=== PATIENT | female | born 1950 | race Caucasian/White ===

== ENCOUNTER 2019-02-06 20:14 | Inpatient (IN) | payer MEDICARE, MEDICAID ==
--- NOTE | 2019-02-06 20:38 | ED Physician Chart ---
ED Chief Complaint/HPI - Patient Information Date Seen:: 02/06/19 Time Seen:: 20:34 Chief Complaint:: possible suicidal History of Present Illness:: 68 yr old female with dm who ststes she is upset and does not want to be here and states she does not want to be evaluated and does not feel she is trying to hurt herself or others Allergies:: Allergies Allergy/AdvReac Type Severity Reaction Status Date / Time No Known Allergies Allergy Verified 11/19/18 04:15 ED Review of Systems - Review of Systems General/Constitutional: No fever, No chills, No weight loss, No weakness, No diaphoresis, No edema, No loss of appetite Skin: No skin lesions, No rash, No bruising Head: No headache, No light-headedness Eyes: No loss of vision, No pain, No diplopia ENT: No earache, No nasal drainage, No sore throat, No tinnitus Neck: No neck pain, No swelling, No thyromegaly, No stiffness, No mass noted Cardio Vascular: No chest pain, No palpitations, No PND, No orthopnea, No edema Pulmonary: No SOB, No cough, No sputum, No wheezing GI: No nausea, No vomiting, No diarrhea, No pain, No melena, No hematochezia, No constipation, No hematemesis G/U: No dysuria, No frequency, No hematuria Musculoskeletal: No bone or joint pain, No back pain, No muscle pain Endocrine: No polyuria, No polydipsia Psychiatric: No prior psych history, No depression, No anxiety, No suicidal ideation Hematopoietic: No bruising, No lymphadenopathy Allergic/Immuno: No urticaria, No angioedema Neurological: No syncope, No focal symptoms, No weakness, No paresthesia, No headache, No seizure, No dizziness, No confusion, No vertigo ED Past Medical History - Past Medical History Past Medical History: DM ED Physical Exam - Physical Examination General/Constitutional: Awake, Well-developed, well-nourished, Alert, No distress, GCS 15, Non-toxic appearing, Ambulatory Head: Atraumatic Eyes: Lids, conjuctiva normal, PERRL, EOMI Skin: Nl inspection, No rash, No skin lesions, No ecchymosis, Well hydrated, No lymphadenopathy ENMT: External ears, nose nl, Nasal exam nl, Lips, teeth, gums nl Neck: Nontender, Full ROM w/o pain, No JVD, No nuchal rigidity, No bruit, No mass, No stridor Respiratory: Nl effort/Exclusion, Clear to Auscultation, No Wheeze/Rhonchi/Rales Cardio Vascular: RRR, No murmur, gallop, rubs, NL S1 S2 GI: No tenderness/rebounding/guarding, No organomegaly, No hernia, Normal BS's, Nondistended, No mass/bruits, No McBurney tenderness : No CVA tenderness Extremities: No tenderness or effusion, Full ROM, normal strength in all extremities, No edema, Normal digits & nails Neuro/Psych: Alert/oriented, DTR's symmetric, Normal sensory exam, Normal motor strength, Judgement/insight normal, Mood normal, Normal gait, No focal deficits Misc: Normal back, No paraspinal tenderness ED Assessment - Assessment General Assessment: possible suicidal ED Septic Shock - . Is Septic Shock (SBP<90, OR Lactate>4 mmol\L) present?: No ED Reassessment (Disposition) - Reassessment Reassessment:: depression anger possible suicidal - Diagnosis Diagnosis:: as above - Patient Disposition Condition at Disposition:: Stable
[2019-02-06 22:53] LABS: URINE SOURCE CLEAN C
[2019-02-06 22:55] LABS: URINE BILIRUBIN NEGATIVE (NEGATIVE); URINE BLOOD TRACE (NEGATIVE); URINE GLUCOSE (UA) >=1000 mg/dL (NEGATIVE); URINE KETONE NEGATIVE (NEGATIVE); URINE LEUKOCYTE ESTERASE NEGATIVE (NEGATIVE); URINE MICROSCOPIC INDICATED? YES; URINE NITRATE NEGATIVE (NEGATIVE); URINE PROTEIN 100 mg/dL (NEGATIVE); URINE UROBILINOGEN 0.2 E.U./dL (0.2 - 1.0)
[2019-02-06 23:07] LABS: % BASOPHILS 0.4 % (0.0-2.0); % EOSINOPHILS 1.4 % (0.0-5.0); % LYMPHOCYTES 31.7 % (20.0-50.0); % MONOCYTES 9.6 % (2.0-10.0); % NEUTROPHILS 56.9 % (40.0-80.0); EOSINOPHILE ABSOLUTE 0.1 Th/cmm (0.1-0.4); HEMATOCRIT 40.1 % (41.0-60); HEMOGLOBIN 13.5 gm/dL (12-16); LYMPHOCYTE ABSOLUTE 2.1 Th/cmm (1.5-3.0); MEAN CELL VOLUME 93.6 fl (81-100); MEAN CORPUSCULAR HEMOGLOBIN 31.6 pg (27.0-31.0); MEAN CORPUSCULAR HGB CONC 33.8 pg (28.0-36.0); MEAN PLATELET VOLUME 7.7 fl; MONOCYTE ABSOLUTE 0.6 Th/cmm (0.3-1.0); NEUTROPHILE ABSOLUTE 3.7 Th/cmm (1.8-8.0); PLATELET COUNT 136 Th/cmm (150-400); RED BLOOD COUNT 4.28 Mil/cmm (3.80-5.20); WHITE BLOOD COUNT 6.5 Th/cmm (4.8-10.8)
[2019-02-06 23:11] LABS: URINE COLOR YELLOW
[2019-02-06 23:19] LABS: URINE CLARITY CLEAR (CLEAR)
[2019-02-06 23:19] LABS: ALB/GLOB RATIO 1.2 (1.0-1.8); ALBUMIN 3.8 gm/dL (3.7-5.3); ALKALINE PHOSPHATASE 74 U/L (34-104); ANION GAP 13.4 (7.0-16.0); BILIRUBIN,TOTAL 0.6 mg/dL (0.3-1.0); BUN - UREA NITROGEN 16 mg/dL (7-25); CALCIUM SERUM 9.5 mg/dL (8.6-10.3); CARBON DIOXIDE 23.5 mEq/L (21.0-31.0); CHLORIDE 96 mEq/L (98-107); CREATININE - SERUM 0.8 mg/dL (0.6-1.2); GFR AFRICAN-AMERICAN > 60.0 ml/min (>90); GFR NON AFRICAN-AMERICAN > 60.0 ml/min; GLUCOSE 256 mg/dL (70-105); POTASSIUM SERUM 3.9 mEq/L (3.5-5.1); SGOT 39 U/L (13-39); SGPT/ALT 43 U/L (7-52); SODIUM SERUM 129 mEq/L (136-145); TOTAL PROTEIN,SERUM 6.9 gm/dL (6.0-8.3)
[2019-02-06 23:31] LABS: URINE BACTERIA NONE SEEN /hpf (NONE SEEN); URINE EPITHELIAL CELLS NONE SEEN /lpf (FEW); URINE RBC NONE SEEN /hpf (0-5); URINE WBC 0-2 /hpf (0-5)
[2019-02-07] MEDS ORDERED: Magnesium Hydroxide (MOM) 30 mL UDC PO PRN (00:22)
[2019-02-07] MEDS ORDERED: GLUCAGON HCl 1 MG KIT IM PRN (00:22)
[2019-02-07] MEDS ORDERED: Maalox 30 mL Cup PO PRN (00:22)
[2019-02-07 00:34] VITALS: BP 176/81
[2019-02-07 00:52] LABS: CHOLESTEROL 169 mg/dL (<200); HDL -HIGH DENSITY LIPOPROTEIN 52 mg/dL (23-92); TRIGLYCERIDES 149 mg/dL (<150)
[2019-02-07] MEDS: INSULIN LISPRO SLIDING SCALE 100 UNITS/ML UNIT SUBQ SCH ×5 (07:01→22:00)
[2019-02-07] MEDS: Multivitamin Tab PO SCH (08:40)
[2019-02-07] MEDS: Aspirin 81mg Chewable Tab PO SCH (08:43)
[2019-02-07] MEDS: Insulin Glargine 100 units/ml 10ml Vial SUBQ SCH (08:59)
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
[2019-02-08] MEDS: INSULIN LISPRO SLIDING SCALE 100 UNITS/ML UNIT SUBQ SCH ×4 (06:47→21:22)
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
[2019-02-08] MEDS: Aspirin 81mg Chewable Tab PO SCH (09:46)
[2019-02-08] MEDS: Multivitamin Tab PO SCH (09:46)
[2019-02-08] MEDS: Insulin Glargine 100 units/ml 10ml Vial SUBQ SCH (09:51)
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
[2019-02-09] MEDS: INSULIN LISPRO SLIDING SCALE 100 UNITS/ML UNIT SUBQ SCH ×4 (06:35→21:10)
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
--- NOTE | 2019-02-09 08:50 | General Progress Note ---
Subjective - Review of Systems Service Date: 02/09/19 Subjective: I don know why I Am here. Objective - Results Result Diagrams: 02/06/19 23:00 02/06/19 23:00 Recent Labs: Laboratory Last Values WBC 6.5 Th/cmm (4.8-10.8) 02/06/19 23:00 RBC 4.28 Mil/cmm (3.80-5.20) 02/06/19 23:00 Hgb 13.5 gm/dL (12-16) 02/06/19 23:00 Hct 40.1 % (41.0-60) L 02/06/19 23:00 MCV 93.6 fl (81-100) 02/06/19 23:00 MCH 31.6 pg (27.0-31.0) H 02/06/19 23:00 MCHC Differential 33.8 pg (28.0-36.0) 02/06/19 23:00 RDW 13.0 % (11.5-20.0) 02/06/19 23:00 Plt Count 136 Th/cmm (150-400) L 02/06/19 23:00 MPV 7.7 fl 02/06/19 23:00 Neutrophils % 56.9 % (40.0-80.0) 02/06/19 23:00 Lymphocytes % 31.7 % (20.0-50.0) 02/06/19 23:00 Monocytes % 9.6 % (2.0-10.0) 02/06/19 23:00 Eosinophils % 1.4 % (0.0-5.0) 02/06/19 23:00 Basophils % 0.4 % (0.0-2.0) 02/06/19 23:00 Sodium 129 mEq/L (136-145) L 02/06/19 23:00 Potassium 3.9 mEq/L (3.5-5.1) 02/06/19 23:00 Chloride 96 mEq/L (98-107) L 02/06/19 23:00 Carbon Dioxide 23.5 mEq/L (21.0-31.0) 02/06/19 23:00 Anion Gap 13.4 (7.0-16.0) 02/06/19 23:00 BUN 16 mg/dL (7-25) 02/06/19 23:00 Creatinine 0.8 mg/dL (0.6-1.2) 02/06/19 23:00 Est GFR ( Amer) > 60.0 ml/min (>90) 02/06/19 23:00 Est GFR (Non-Af Amer) > 60.0 ml/min 02/06/19 23:00 BUN/Creatinine Ratio 20.0 02/06/19 23:00 Glucose 256 mg/dL (70-105) H 02/06/19 23:00 POC Glucose 178 MG/DL (70 - 105) H 02/07/19 06:50 Calcium 9.5 mg/dL (8.6-10.3) 02/06/19 23:00 Total Bilirubin 0.6 mg/dL (0.3-1.0) 02/06/19 23:00 AST 39 U/L (13-39) 02/06/19 23:00 ALT 43 U/L (7-52) 02/06/19 23:00 Alkaline Phosphatase 74 U/L (34-104) 02/06/19 23:00 Total Protein 6.9 gm/dL (6.0-8.3) 02/06/19 23:00 Albumin 3.8 gm/dL (3.7-5.3) 02/06/19 23:00 Globulin 3.1 gm/dL 02/06/19 23:00 Albumin/Globulin Ratio 1.2 (1.0-1.8) 02/06/19 23:00 Triglycerides 149 mg/dL (<150) 02/07/19 00:00 Cholesterol 169 mg/dL (<200) 02/07/19 00:00 LDL Cholesterol Direct 95 mg/dL (75-193) 02/07/19 00:00 HDL Cholesterol 52 mg/dL (23-92) 02/07/19 00:00 Urine Source CLEAN C 02/06/19 20:30 Urine Color YELLOW 02/06/19 20:30 Urine Clarity CLEAR (CLEAR) 02/06/19 20:30 Urine pH 6.0 (4.6 - 8.0) 02/06/19 20:30 Ur Specific [place] 1.015 (1.005-1.030) 02/06/19 20:30 Urine Protein 100 mg/dL (NEGATIVE) H 02/06/19 20:30 Urine Glucose (UA) >=1000 mg/dL (NEGATIVE) H 02/06/19 20:30 Urine Ketones NEGATIVE mg/dL (NEGATIVE) 02/06/19 20:30 Urine Blood TRACE (NEGATIVE) 02/06/19 20:30 Urine Nitrate NEGATIVE (NEGATIVE) 02/06/19 20:30 Urine Bilirubin NEGATIVE (NEGATIVE) 02/06/19 20:30 Urine Urobilinogen 0.2 E.U./dL (0.2 - 1.0) 02/06/19 20:30 Ur Leukocyte Esterase NEGATIVE (NEGATIVE) 02/06/19 20:30 Urine RBC NONE SEEN /hpf (0-5) 02/06/19 20:30 Urine WBC 0-2 /hpf (0-5) 02/06/19 20:30 Ur Epithelial Cells NONE SEEN /lpf (FEW) 02/06/19 20:30 Urine Bacteria NONE SEEN /hpf (NONE SEEN) 02/06/19 20:30 Valproic Acid 30.6 ug/mL (50.0-100.0) L 02/07/19 05:30 - Physical Exam Vitals and I&O: Vital Signs Temp 97.2 F 02/09/19 06:17 Pulse 70 02/09/19 06:17 Resp 18 02/09/19 06:17 BP 106/75 02/09/19 06:17 Pulse Ox 96 02/09/19 06:17 Intake & Output 02/08/19 02/09/19 02/09/19 18:59 06:59 18:59 Intake Total 120 Balance 120 Intake: Oral 120 Other: # Voids 2 3 # Bowel Movements 0 Active Medications: Current Medications Acetaminophen (Tylenol) 650 mg PO Q4HR PRN PRN Reason: Mild Pain / Temp above 100 Stop: 04/08/19 00:18 Last Admin: 02/09/19 04:04 Dose: 650 mg Al Hydrox/Mg Hydrox/Simethicone (Maalox) 30 ml PO Q4HR PRN PRN Reason: GI DISTRESS Stop: 04/08/19 00:21 Aspirin (Aspirin Chewable) 81 mg PO DAILY YVON Stop: 04/08/19 08:59 Last Admin: 02/08/19 09:46 Dose: 81 mg Dextrose (Glutose 40%) 18.75 gm PO PRN PRN PRN Reason: BS below 70 & tolerate po Stop: 04/08/19 00:21 Divalproex Sodium (Depakote Dr) 250 mg PO BID [facility]; Protocol Stop: 04/08/19 08:59 Last Admin: 02/08/19 16:34 Dose: 250 mg Donepezil HCl (Aricept) 10 mg PO DAILY [facility] Stop: 04/08/19 08:59 Last Admin: 02/08/19 09:46 Dose: 10 mg Ergocalciferol (Vitamin D2) 50,000 iu PO QFRI [facility] Stop: 04/14/19 08:59 Glucagon (Glucagen) 1 mg IM PRN PRN PRN Reason: BS below 70 & Dextrose ineffec Stop: 04/08/19 00:21 Insulin Glargine (Lantus Insulin) 25 units SUBQ DAILY [facility] Stop: 04/08/19 08:59 Last Admin: 02/08/19 09:51 Dose: 25 units Insulin Human Lispro (Humalog Insulin Sliding Scale) 0 units SUBQ ACHS [facility]; Protocol Stop: 04/08/19 07:29 Last Admin: 02/09/19 06:35 Dose: Not Given Magnesium Hydroxide (Milk Of Magnesia) 30 ml PO HS PRN PRN Reason: Constipation Stop: 04/08/19 00:21 Memantine (Namenda) 10 mg PO BID [facility] Stop: 04/08/19 08:59 Last Admin: 02/08/19 16:35 Dose: 10 mg Multivitamins/Vitamin C (Theragran) 1 tab PO DAILY [facility] Stop: 04/08/19 08:59 Last Admin: 02/08/19 09:46 Dose: 1 tab Oxcarbazepine (Trileptal) 150 mg PO BID [facility]; Protocol Stop: 04/08/19 08:59 Last Admin: 02/08/19 16:35 Dose: 150 mg Quetiapine Fumarate (Seroquel) 37.5 mg PO BID [facility]; Protocol Stop: 04/10/19 08:59 Tramadol HCl (Ultram) 50 mg PO TID PRN PRN Reason: Pain (Severe) LEVEL 7-10 Stop: 04/08/19 00:21 Last Admin: 02/08/19 18:41 Dose: 50 mg Zolpidem Tartrate (Ambien) 5 mg PO HS PRN PRN Reason: Insomnia Stop: 04/08/19 00:18 Last Admin: 02/07/19 21:03 Dose: 5 mg General: Alert, No acute distress HEENT: Atraumatic Neck: Supple Cardiovascular: Regular rate Lungs: Clear to auscultation Abdomen: Bowel sounds Extremities: Other (No edema) Neurological: Normal gait Skin: Other (Warm and dry) Psych/Mental Status: Other (confused) Assessment/Plan - Assessment Assessment: Patient is awake, alert, calm not oriented. Dx: Increased in agitation, DM - Plan Plan: Patient is follow by [facility], she is continue with home meds. Will continue to monitor. Nutritional Asmnt/Malnutr-PDOC - Dietary Evaluation Malnutrition Findings (Please click <Entered> for more info): Nutritional Asmnt/Malnutrition Start: 02/07/19 09: 10 Text: Status: Complete Freq: Protocol: Document 02/07/19 09:10 JOSE (Rec: 02/07/19 09:58 [email or web address] RUBY- [id number]) Nutritional Asmnt/Malnutrition Patient General Information Nutritional Screening High Risk Diagnosis Psychosis Pertinent Medical Hx/Surgical Hx Psychosis, DM, HTN, Dementia Subjective Information Consult received for DM. Per nursing notes, patient is confused and forgetful. In bed at time of visit. Not able to answer questions regarding diet history. Current Diet Order/ Nutrition Support 60 gm CCHO, 2gm Sodium Patient / S.O Not Indicated Pertinent Medications maalox, Vitamin D2, Glucagon, lantus, humalog, MOM, Theragran Pertinent Labs (02/06) Na 129, glucose 256 Nutritional Hx/Data Height 1.55 m Height (Calculated Centimeters) 154.9 Current Weight (lbs) 69.4 kg Weight (Calculated Kilograms) 69.4 Weight (Calculated Grams) 93653.6 [place] Body Weight 105 % [place] Body Weight 145 Body Mass Index (BMI) 28.9 Recent Weight Change No Weight Status Overweight GI Symptoms GI Symptoms None Last BM none noted since admission Difficult in: None Food Allergies No Cultural/Ethnic/Scientology Belief none indicated Usual diet at home unknown Skin Integrity/Comment: Robe 21, intact Current %PO Good (75-100%) Estimated Nutritional Goals BEE in Kcals: Using Current wt Calories/Kcals/Kg 69.5kg CBW 22-27 Kcals Calculated ~9830-8206 kcal/day Protein: Using Current wt Protein g/k.8-1 gm/kg Protein Calculated ~55-70 gm/day Fluid: ml ~4717-2231 ml/day (1 ml/kcal) Nutritional Problem 1. Problem Problem Altered nutrition related lab values related to Etiology electrolyte imbalance, hyperglycemia aeb Signs/Symptoms: Na 129, glucose 256 Intervention/Recommendation Comments 1. Continue with 60 gm CCHO, 2gm Sodium diet as tolerated. 2. MD to adjust insulin regimen as needed for optimal glycemic control. 3. Consider fluid restiction if patient remains hyponatremic. Expected Outcomes/Goals Expected Outcomes/Goals PO intake to meet >75% of nutritional needs, weight stability or trend toward ideal body weight, skin intact , nutrition related labs to approach WNL F/U MR 02/10-
[2019-02-09] MEDS: Insulin Glargine 100 units/ml 10ml Vial SUBQ SCH (09:00)
[2019-02-09] MEDS: Multivitamin Tab PO SCH (09:19)
[2019-02-09] MEDS: Aspirin 81mg Chewable Tab PO SCH (09:19)
[2019-02-10] MEDS: INSULIN LISPRO SLIDING SCALE 100 UNITS/ML UNIT SUBQ SCH ×4 (06:31→20:33)
[2019-02-10] MEDS: Aspirin 81mg Chewable Tab PO SCH (08:50)
[2019-02-10] MEDS: Multivitamin Tab PO SCH (08:51)
[2019-02-10] MEDS: Insulin Glargine 100 units/ml 10ml Vial SUBQ SCH (09:00)
--- NOTE | 2019-02-10 09:01 | General Progress Note ---
Subjective - Review of Systems Service Date: 02/10/19 Subjective: I am fine Objective - Results Result Diagrams: 02/06/19 23:00 02/06/19 23:00 Recent Labs: Laboratory Last Values WBC 6.5 Th/cmm (4.8-10.8) 02/06/19 23:00 RBC 4.28 Mil/cmm (3.80-5.20) 02/06/19 23:00 Hgb 13.5 gm/dL (12-16) 02/06/19 23:00 Hct 40.1 % (41.0-60) L 02/06/19 23:00 MCV 93.6 fl (81-100) 02/06/19 23:00 MCH 31.6 pg (27.0-31.0) H 02/06/19 23:00 MCHC Differential 33.8 pg (28.0-36.0) 02/06/19 23:00 RDW 13.0 % (11.5-20.0) 02/06/19 23:00 Plt Count 136 Th/cmm (150-400) L 02/06/19 23:00 MPV 7.7 fl 02/06/19 23:00 Neutrophils % 56.9 % (40.0-80.0) 02/06/19 23:00 Lymphocytes % 31.7 % (20.0-50.0) 02/06/19 23:00 Monocytes % 9.6 % (2.0-10.0) 02/06/19 23:00 Eosinophils % 1.4 % (0.0-5.0) 02/06/19 23:00 Basophils % 0.4 % (0.0-2.0) 02/06/19 23:00 Sodium 129 mEq/L (136-145) L 02/06/19 23:00 Potassium 3.9 mEq/L (3.5-5.1) 02/06/19 23:00 Chloride 96 mEq/L (98-107) L 02/06/19 23:00 Carbon Dioxide 23.5 mEq/L (21.0-31.0) 02/06/19 23:00 Anion Gap 13.4 (7.0-16.0) 02/06/19 23:00 BUN 16 mg/dL (7-25) 02/06/19 23:00 Creatinine 0.8 mg/dL (0.6-1.2) 02/06/19 23:00 Est GFR ( Amer) > 60.0 ml/min (>90) 02/06/19 23:00 Est GFR (Non-Af Amer) > 60.0 ml/min 02/06/19 23:00 BUN/Creatinine Ratio 20.0 02/06/19 23:00 Glucose 256 mg/dL (70-105) H 02/06/19 23:00 POC Glucose 178 MG/DL (70 - 105) H 02/07/19 06:50 Calcium 9.5 mg/dL (8.6-10.3) 02/06/19 23:00 Total Bilirubin 0.6 mg/dL (0.3-1.0) 02/06/19 23:00 AST 39 U/L (13-39) 02/06/19 23:00 ALT 43 U/L (7-52) 02/06/19 23:00 Alkaline Phosphatase 74 U/L (34-104) 02/06/19 23:00 Total Protein 6.9 gm/dL (6.0-8.3) 02/06/19 23:00 Albumin 3.8 gm/dL (3.7-5.3) 02/06/19 23:00 Globulin 3.1 gm/dL 02/06/19 23:00 Albumin/Globulin Ratio 1.2 (1.0-1.8) 02/06/19 23:00 Triglycerides 149 mg/dL (<150) 02/07/19 00:00 Cholesterol 169 mg/dL (<200) 02/07/19 00:00 LDL Cholesterol Direct 95 mg/dL (75-193) 02/07/19 00:00 HDL Cholesterol 52 mg/dL (23-92) 02/07/19 00:00 Urine Source CLEAN C 02/06/19 20:30 Urine Color YELLOW 02/06/19 20:30 Urine Clarity CLEAR (CLEAR) 02/06/19 20:30 Urine pH 6.0 (4.6 - 8.0) 02/06/19 20:30 Ur Specific [place] 1.015 (1.005-1.030) 02/06/19 20:30 Urine Protein 100 mg/dL (NEGATIVE) H 02/06/19 20:30 Urine Glucose (UA) >=1000 mg/dL (NEGATIVE) H 02/06/19 20:30 Urine Ketones NEGATIVE mg/dL (NEGATIVE) 02/06/19 20:30 Urine Blood TRACE (NEGATIVE) 02/06/19 20:30 Urine Nitrate NEGATIVE (NEGATIVE) 02/06/19 20:30 Urine Bilirubin NEGATIVE (NEGATIVE) 02/06/19 20:30 Urine Urobilinogen 0.2 E.U./dL (0.2 - 1.0) 02/06/19 20:30 Ur Leukocyte Esterase NEGATIVE (NEGATIVE) 02/06/19 20:30 Urine RBC NONE SEEN /hpf (0-5) 02/06/19 20:30 Urine WBC 0-2 /hpf (0-5) 02/06/19 20:30 Ur Epithelial Cells NONE SEEN /lpf (FEW) 02/06/19 20:30 Urine Bacteria NONE SEEN /hpf (NONE SEEN) 02/06/19 20:30 Valproic Acid 30.6 ug/mL (50.0-100.0) L 02/07/19 05:30 - Physical Exam Vitals and I&O: Vital Signs Temp 97.2 F 02/10/19 06:36 Pulse 64 02/10/19 06:36 Resp 18 02/10/19 06:36 BP 111/66 02/10/19 06:36 Pulse Ox 98 02/10/19 06:36 Intake & Output 02/09/19 02/10/19 02/10/19 18:59 06:59 18:59 Intake Total 900 240 Balance 900 240 Intake: Oral 900 240 Other: # Voids 3 2 # Bowel Movements 1 0 Active Medications: Current Medications Acetaminophen (Tylenol) 650 mg PO Q4HR PRN PRN Reason: Mild Pain / Temp above 100 Stop: 04/08/19 00:18 Last Admin: 02/09/19 23:54 Dose: 650 mg Al Hydrox/Mg Hydrox/Simethicone (Maalox) 30 ml PO Q4HR PRN PRN Reason: GI DISTRESS Stop: 04/08/19 00:21 Aspirin (Aspirin Chewable) 81 mg PO DAILY YVON Stop: 04/08/19 08:59 Last Admin: 02/10/19 08:50 Dose: 81 mg Dextrose (Glutose 40%) 18.75 gm PO PRN PRN PRN Reason: BS below 70 & tolerate po Stop: 04/08/19 00:21 Divalproex Sodium (Depakote Dr) 250 mg PO BID [facility]; Protocol Stop: 04/08/19 08:59 Last Admin: 02/10/19 08:50 Dose: 250 mg Donepezil HCl (Aricept) 10 mg PO DAILY [facility] Stop: 04/08/19 08:59 Last Admin: 02/10/19 08:50 Dose: 10 mg Ergocalciferol (Vitamin D2) 50,000 iu PO QFRI [facility] Stop: 04/14/19 08:59 Glucagon (Glucagen) 1 mg IM PRN PRN PRN Reason: BS below 70 & Dextrose ineffec Stop: 04/08/19 00:21 Insulin Glargine (Lantus Insulin) 25 units SUBQ DAILY [facility] Stop: 04/08/19 08:59 Last Admin: 02/09/19 09:00 Dose: 25 units Insulin Human Lispro (Humalog Insulin Sliding Scale) 0 units SUBQ ACHS [facility]; Protocol Stop: 04/08/19 07:29 Last Admin: 02/10/19 06:31 Dose: Not Given Magnesium Hydroxide (Milk Of Magnesia) 30 ml PO HS PRN PRN Reason: Constipation Stop: 04/08/19 00:21 Memantine (Namenda) 10 mg PO BID [facility] Stop: 04/08/19 08:59 Last Admin: 02/10/19 08:51 Dose: 10 mg Multivitamins/Vitamin C (Theragran) 1 tab PO DAILY [facility] Stop: 04/08/19 08:59 Last Admin: 02/10/19 08:51 Dose: 1 tab Oxcarbazepine (Trileptal) 150 mg PO BID [facility]; Protocol Stop: 04/08/19 08:59 Last Admin: 02/10/19 08:51 Dose: 150 mg Quetiapine Fumarate (Seroquel) 37.5 mg PO BID [facility]; Protocol Stop: 04/10/19 08:59 Last Admin: 02/10/19 08:52 Dose: 37.5 mg Tramadol HCl (Ultram) 50 mg PO TID PRN PRN Reason: Pain (Severe) LEVEL 7-10 Stop: 04/08/19 00:21 Last Admin: 02/08/19 18:41 Dose: 50 mg Zolpidem Tartrate (Ambien) 5 mg PO HS PRN PRN Reason: Insomnia Stop: 04/08/19 00:18 Last Admin: 02/07/19 21:03 Dose: 5 mg General: Alert, No acute distress HEENT: Atraumatic Neck: Supple Cardiovascular: Regular rate Lungs: Clear to auscultation Abdomen: Bowel sounds Extremities: Other (No edema) Neurological: Normal gait Skin: Other (Warm and dry) Psych/Mental Status: Other (confused) Assessment/Plan - Assessment Assessment: Patient is awake, alert, calm not oriented. Dx: Increased in agitation, DM. - Plan Plan: Patient is follow by [facility], she is continue with home meds. Will continue to monitor. Nutritional Asmnt/Malnutr-PDOC - Dietary Evaluation Malnutrition Findings (Please click <Entered> for more info): Nutritional Asmnt/Malnutrition Start: 02/07/19 09: 10 Text: Status: Complete Freq: Protocol: Document 02/07/19 09:10 MMJESSICA (Rec: 02/07/19 09:58 MMULTERENCE BELTRAN- [email or web address]) Nutritional Asmnt/Malnutrition Patient General Information Nutritional Screening High Risk Diagnosis Psychosis Pertinent Medical Hx/Surgical Hx Psychosis, DM, HTN, Dementia Subjective Information Consult received for DM. Per nursing notes, patient is confused and forgetful. In bed at time of visit. Not able to answer questions regarding diet history. Current Diet Order/ Nutrition Support 60 gm CCHO, 2gm Sodium Patient / S.O Not Indicated Pertinent Medications maalox, Vitamin D2, Glucagon, lantus, humalog, MOM, Theragran Pertinent Labs (02/06) Na 129, glucose 256 Nutritional Hx/Data Height 1.55 m Height (Calculated Centimeters) 154.9 Current Weight (lbs) 69.4 kg Weight (Calculated Kilograms) 69.4 Weight (Calculated Grams) 70719.6 [place] Body Weight 105 % [place] Body Weight 145 Body Mass Index (BMI) 28.9 Recent Weight Change No Weight Status Overweight GI Symptoms GI Symptoms None Last BM none noted since admission Difficult in: None Food Allergies No Cultural/Ethnic/Tenriism Belief none indicated Usual diet at home unknown Skin Integrity/Comment: Robe 21, intact Current %PO Good (75-100%) Estimated Nutritional Goals BEE in Kcals: Using Current wt Calories/Kcals/Kg 69.5kg CBW 22-27 Kcals Calculated ~6644-0255 kcal/day Protein: Using Current wt Protein g/k.8-1 gm/kg Protein Calculated ~55-70 gm/day Fluid: ml ~8785-0451 ml/day (1 ml/kcal) Nutritional Problem 1. Problem Problem Altered nutrition related lab values related to Etiology electrolyte imbalance, hyperglycemia aeb Signs/Symptoms: Na 129, glucose 256 Intervention/Recommendation Comments 1. Continue with 60 gm CCHO, 2gm Sodium diet as tolerated. 2. MD to adjust insulin regimen as needed for optimal glycemic control. 3. Consider fluid restiction if patient remains hyponatremic. Expected Outcomes/Goals Expected Outcomes/Goals PO intake to meet >75% of nutritional needs, weight stability or trend toward ideal body weight, skin intact , nutrition related labs to approach WNL F/U MR
--- NOTE | 2019-02-10 23:53 | Progress Notes ---
DATE: 02/10/2019 SUBJECTIVE: The patient remains impulsive, unpredictable, violent at home, very confused on exam. Continues to state that she has no idea why she is in the hospital. I told her that she was aggressive at home and violent. She states "while people flight with me, I fight them back." The patient minimizing her symptoms, evasive with questioning and disengaged. Poor orientation. Medications were noted. Recent dose increases of Seroquel. PLAN: We will continue to monitor. Monitor for any signs and symptoms of agitation and aggression. We are also trying to confirm a safe disposition. [facility]# [id number]
[2019-02-11] MEDS: INSULIN LISPRO SLIDING SCALE 100 UNITS/ML UNIT SUBQ SCH ×4 (06:47→20:38)
[2019-02-11] MEDS: Multivitamin Tab PO SCH (08:44)
[2019-02-11] MEDS: Insulin Glargine 100 units/ml 10ml Vial SUBQ SCH (08:44)
[2019-02-11] MEDS: Aspirin 81mg Chewable Tab PO SCH (08:44)
--- NOTE | 2019-02-11 08:55 | General Progress Note ---
Subjective - Review of Systems Service Date: 02/11/19 Subjective: I am fine Objective - Results Result Diagrams: 02/06/19 23:00 02/06/19 23:00 Recent Labs: Laboratory Last Values WBC 6.5 Th/cmm (4.8-10.8) 02/06/19 23:00 RBC 4.28 Mil/cmm (3.80-5.20) 02/06/19 23:00 Hgb 13.5 gm/dL (12-16) 02/06/19 23:00 Hct 40.1 % (41.0-60) L 02/06/19 23:00 MCV 93.6 fl (81-100) 02/06/19 23:00 MCH 31.6 pg (27.0-31.0) H 02/06/19 23:00 MCHC Differential 33.8 pg (28.0-36.0) 02/06/19 23:00 RDW 13.0 % (11.5-20.0) 02/06/19 23:00 Plt Count 136 Th/cmm (150-400) L 02/06/19 23:00 MPV 7.7 fl 02/06/19 23:00 Neutrophils % 56.9 % (40.0-80.0) 02/06/19 23:00 Lymphocytes % 31.7 % (20.0-50.0) 02/06/19 23:00 Monocytes % 9.6 % (2.0-10.0) 02/06/19 23:00 Eosinophils % 1.4 % (0.0-5.0) 02/06/19 23:00 Basophils % 0.4 % (0.0-2.0) 02/06/19 23:00 Sodium 129 mEq/L (136-145) L 02/06/19 23:00 Potassium 3.9 mEq/L (3.5-5.1) 02/06/19 23:00 Chloride 96 mEq/L (98-107) L 02/06/19 23:00 Carbon Dioxide 23.5 mEq/L (21.0-31.0) 02/06/19 23:00 Anion Gap 13.4 (7.0-16.0) 02/06/19 23:00 BUN 16 mg/dL (7-25) 02/06/19 23:00 Creatinine 0.8 mg/dL (0.6-1.2) 02/06/19 23:00 Est GFR ( Amer) > 60.0 ml/min (>90) 02/06/19 23:00 Est GFR (Non-Af Amer) > 60.0 ml/min 02/06/19 23:00 BUN/Creatinine Ratio 20.0 02/06/19 23:00 Glucose 256 mg/dL (70-105) H 02/06/19 23:00 POC Glucose 178 MG/DL (70 - 105) H 02/07/19 06:50 Calcium 9.5 mg/dL (8.6-10.3) 02/06/19 23:00 Total Bilirubin 0.6 mg/dL (0.3-1.0) 02/06/19 23:00 AST 39 U/L (13-39) 02/06/19 23:00 ALT 43 U/L (7-52) 02/06/19 23:00 Alkaline Phosphatase 74 U/L (34-104) 02/06/19 23:00 Total Protein 6.9 gm/dL (6.0-8.3) 02/06/19 23:00 Albumin 3.8 gm/dL (3.7-5.3) 02/06/19 23:00 Globulin 3.1 gm/dL 02/06/19 23:00 Albumin/Globulin Ratio 1.2 (1.0-1.8) 02/06/19 23:00 Triglycerides 149 mg/dL (<150) 02/07/19 00:00 Cholesterol 169 mg/dL (<200) 02/07/19 00:00 LDL Cholesterol Direct 95 mg/dL (75-193) 02/07/19 00:00 HDL Cholesterol 52 mg/dL (23-92) 02/07/19 00:00 Urine Source CLEAN C 02/06/19 20:30 Urine Color YELLOW 02/06/19 20:30 Urine Clarity CLEAR (CLEAR) 02/06/19 20:30 Urine pH 6.0 (4.6 - 8.0) 02/06/19 20:30 Ur Specific [place] 1.015 (1.005-1.030) 02/06/19 20:30 Urine Protein 100 mg/dL (NEGATIVE) H 02/06/19 20:30 Urine Glucose (UA) >=1000 mg/dL (NEGATIVE) H 02/06/19 20:30 Urine Ketones NEGATIVE mg/dL (NEGATIVE) 02/06/19 20:30 Urine Blood TRACE (NEGATIVE) 02/06/19 20:30 Urine Nitrate NEGATIVE (NEGATIVE) 02/06/19 20:30 Urine Bilirubin NEGATIVE (NEGATIVE) 02/06/19 20:30 Urine Urobilinogen 0.2 E.U./dL (0.2 - 1.0) 02/06/19 20:30 Ur Leukocyte Esterase NEGATIVE (NEGATIVE) 02/06/19 20:30 Urine RBC NONE SEEN /hpf (0-5) 02/06/19 20:30 Urine WBC 0-2 /hpf (0-5) 02/06/19 20:30 Ur Epithelial Cells NONE SEEN /lpf (FEW) 02/06/19 20:30 Urine Bacteria NONE SEEN /hpf (NONE SEEN) 02/06/19 20:30 Valproic Acid 30.6 ug/mL (50.0-100.0) L 02/07/19 05:30 - Physical Exam Vitals and I&O: Vital Signs Temp 98.6 F 02/11/19 06:44 Pulse 75 02/11/19 06:44 Resp 18 02/11/19 06:44 BP 140/61 02/11/19 06:44 Pulse Ox 97 02/11/19 06:44 Intake & Output 02/10/19 02/11/19 02/11/19 18:59 06:59 18:59 Intake Total 1000 360 Balance 1000 360 Intake: Oral 1000 360 Other: # Voids 4 2 # Bowel Movements 1 1 Active Medications: Current Medications Acetaminophen (Tylenol) 650 mg PO Q4HR PRN PRN Reason: Mild Pain / Temp above 100 Stop: 04/08/19 00:18 Last Admin: 02/10/19 18:53 Dose: 650 mg Al Hydrox/Mg Hydrox/Simethicone (Maalox) 30 ml PO Q4HR PRN PRN Reason: GI DISTRESS Stop: 04/08/19 00:21 Aspirin (Aspirin Chewable) 81 mg PO DAILY YVON Stop: 04/08/19 08:59 Last Admin: 02/10/19 08:50 Dose: 81 mg Dextrose (Glutose 40%) 18.75 gm PO PRN PRN PRN Reason: BS below 70 & tolerate po Stop: 04/08/19 00:21 Divalproex Sodium (Depakote Dr) 250 mg PO BID [facility]; Protocol Stop: 04/08/19 08:59 Last Admin: 02/10/19 16:40 Dose: 250 mg Donepezil HCl (Aricept) 10 mg PO DAILY [facility] Stop: 04/08/19 08:59 Last Admin: 02/10/19 08:50 Dose: 10 mg Ergocalciferol (Vitamin D2) 50,000 iu PO QFRI [facility] Stop: 04/14/19 08:59 Glucagon (Glucagen) 1 mg IM PRN PRN PRN Reason: BS below 70 & Dextrose ineffec Stop: 04/08/19 00:21 Insulin Glargine (Lantus Insulin) 25 units SUBQ DAILY [facility] Stop: 04/08/19 08:59 Last Admin: 02/10/19 09:00 Dose: 25 units Insulin Human Lispro (Humalog Insulin Sliding Scale) 0 units SUBQ ACHS [facility]; Protocol Stop: 04/08/19 07:29 Last Admin: 02/11/19 06:47 Dose: 3 units Magnesium Hydroxide (Milk Of Magnesia) 30 ml PO HS PRN PRN Reason: Constipation Stop: 04/08/19 00:21 Memantine (Namenda) 10 mg PO BID [facility] Stop: 04/08/19 08:59 Last Admin: 02/10/19 16:42 Dose: 10 mg Multivitamins/Vitamin C (Theragran) 1 tab PO DAILY [facility] Stop: 04/08/19 08:59 Last Admin: 02/10/19 08:51 Dose: 1 tab Oxcarbazepine (Trileptal) 150 mg PO BID [facility]; Protocol Stop: 04/08/19 08:59 Last Admin: 02/10/19 16:41 Dose: 150 mg Quetiapine Fumarate (Seroquel) 37.5 mg PO BID [facility]; Protocol Stop: 04/10/19 08:59 Last Admin: 02/10/19 16:40 Dose: 37.5 mg Tramadol HCl (Ultram) 50 mg PO TID PRN PRN Reason: Pain (Severe) LEVEL 7-10 Stop: 04/08/19 00:21 Last Admin: 02/08/19 18:41 Dose: 50 mg Zolpidem Tartrate (Ambien) 5 mg PO HS PRN PRN Reason: Insomnia Stop: 04/08/19 00:18 Last Admin: 02/10/19 20:35 Dose: 5 mg General: Alert, No acute distress HEENT: Atraumatic Neck: Supple Cardiovascular: Regular rate Lungs: Clear to auscultation Abdomen: Bowel sounds Extremities: Other (No edema) Neurological: Normal gait Skin: Other (Warm and dry) Psych/Mental Status: Other (confused) Assessment/Plan - Assessment Assessment: Patient is awake, alert, calm not oriented. Dx: Increased in agitation, DM. - Plan Plan: Patient is follow by [facility], she is continue with home meds. Will continue to monitor. Nutritional Asmnt/Malnutr-PDOC - Dietary Evaluation Malnutrition Findings (Please click <Entered> for more info): Nutritional Asmnt/Malnutrition Start: 02/07/19 09: 10 Text: Status: Complete Freq: Protocol: Document 02/07/19 09:10 MMJESSICA (Rec: 02/07/19 09:58 MMULTERENCE BELTRAN- [email or web address]) Nutritional Asmnt/Malnutrition Patient General Information Nutritional Screening High Risk Diagnosis Psychosis Pertinent Medical Hx/Surgical Hx Psychosis, DM, HTN, Dementia Subjective Information Consult received for DM. Per nursing notes, patient is confused and forgetful. In bed at time of visit. Not able to answer questions regarding diet history. Current Diet Order/ Nutrition Support 60 gm CCHO, 2gm Sodium Patient / S.O Not Indicated Pertinent Medications maalox, Vitamin D2, Glucagon, lantus, humalog, MOM, Theragran Pertinent Labs (02/06) Na 129, glucose 256 Nutritional Hx/Data Height 1.55 m Height (Calculated Centimeters) 154.9 Current Weight (lbs) 69.4 kg Weight (Calculated Kilograms) 69.4 Weight (Calculated Grams) 63677.6 [place] Body Weight 105 % [place] Body Weight 145 Body Mass Index (BMI) 28.9 Recent Weight Change No Weight Status Overweight GI Symptoms GI Symptoms None Last BM none noted since admission Difficult in: None Food Allergies No Cultural/Ethnic/[place] Belief none indicated Usual diet at home unknown Skin Integrity/Comment: Robe 21, intact Current %PO Good (75-100%) Estimated Nutritional Goals BEE in Kcals: Using Current wt Calories/Kcals/Kg 69.5kg CBW 22-27 Kcals Calculated ~5488-6353 kcal/day Protein: Using Current wt Protein g/k.8-1 gm/kg Protein Calculated ~55-70 gm/day Fluid: ml ~8394-2266 ml/day (1 ml/kcal) Nutritional Problem 1. Problem Problem Altered nutrition related lab values related to Etiology electrolyte imbalance, hyperglycemia aeb Signs/Symptoms: Na 129, glucose 256 Intervention/Recommendation Comments 1. Continue with 60 gm CCHO, 2gm Sodium diet as tolerated. 2. MD to adjust insulin regimen as needed for optimal glycemic control. 3. Consider fluid restiction if patient remains hyponatremic. Expected Outcomes/Goals Expected Outcomes/Goals PO intake to meet >75% of nutritional needs, weight stability or trend toward ideal body weight, skin intact , nutrition related labs to approach WNL F/U MR
[2019-02-11 13:31] LABS: ALB/GLOB RATIO 1.3 (1.0-1.8); ALBUMIN 3.5 gm/dL (3.7-5.3); ALKALINE PHOSPHATASE 73 U/L (34-104); BILIRUBIN,TOTAL 0.4 mg/dL (0.3-1.0); BUN - UREA NITROGEN 17 mg/dL (7-25); CALCIUM SERUM 8.9 mg/dL (8.6-10.3); CHLORIDE 94 mEq/L (98-107); CREATININE - SERUM 0.6 mg/dL (0.6-1.2); GFR AFRICAN-AMERICAN > 60.0 ml/min (>90); GFR NON AFRICAN-AMERICAN > 60.0 ml/min; GLUCOSE 181 mg/dL (70-105); SGOT 33 U/L (13-39); SGPT/ALT 34 U/L (7-52); SODIUM SERUM 123 mEq/L (136-145); TOTAL PROTEIN,SERUM 6.3 gm/dL (6.0-8.3)
--- NOTE | 2019-02-11 22:26 | Progress Notes ---
DATE: 02/11/2019 The patient in the hospital. Aggressive at home, agitated at home. Staff alerting me to a low sodium likely oxcarbazepine. No other history of seizures. The patient noting that she only got aggressive with the family because "they bother me." Ongoing symptoms, safety concerns, very confused and disoriented. We are trying to help the patient with placement as well. She believes that she is going home, but as of yet this is unclear, it is unclear if her family can really take care of her. PLAN: We will continue to monitor. We will lower dosing of the oxcarbazepine to see if this will alleviate her low sodium. [facility]# [id number]
[2019-02-12] MEDS: INSULIN LISPRO SLIDING SCALE 100 UNITS/ML UNIT SUBQ SCH ×4 (06:32→21:37)
[2019-02-12] MEDS: Multivitamin Tab PO SCH (08:49)
[2019-02-12] MEDS: Aspirin 81mg Chewable Tab PO SCH (08:49)
[2019-02-12] MEDS: Insulin Glargine 100 units/ml 10ml Vial SUBQ SCH (08:50)
--- NOTE | 2019-02-12 12:37 | Progress Notes ---
DATE: 02/11/2019 SUBJECTIVE: The patient in the hospital, argumentative, confused and stating that she will fight with other people if people talk to her apparently, wanted to use violence. The patient was violent at home, aggressive at home. She remains impulsive, unpredictable, does not believe that the family wants her in the hospital. Keeps asking why she is in the hospital. Ongoing safety concerns, I will be titrating and adjusting the dosages of medications, mostly withdrawn and isolated, keeps to herself, concerns of strike out. We are actively trying to find a place for her to go. Medications were reviewed. [facility]# [id number]
--- NOTE | 2019-02-12 17:53 | General Progress Note ---
Subjective - Review of Systems Service Date: 02/12/19 Subjective: I am fine Objective - Results Result Diagrams: 02/06/19 23:00 02/11/19 13:13 Recent Labs: Laboratory Last Values WBC 6.5 Th/cmm (4.8-10.8) 02/06/19 23:00 RBC 4.28 Mil/cmm (3.80-5.20) 02/06/19 23:00 Hgb 13.5 gm/dL (12-16) 02/06/19 23:00 Hct 40.1 % (41.0-60) L 02/06/19 23:00 MCV 93.6 fl (81-100) 02/06/19 23:00 MCH 31.6 pg (27.0-31.0) H 02/06/19 23:00 MCHC Differential 33.8 pg (28.0-36.0) 02/06/19 23:00 RDW 13.0 % (11.5-20.0) 02/06/19 23:00 Plt Count 136 Th/cmm (150-400) L 02/06/19 23:00 MPV 7.7 fl 02/06/19 23:00 Neutrophils % 56.9 % (40.0-80.0) 02/06/19 23:00 Lymphocytes % 31.7 % (20.0-50.0) 02/06/19 23:00 Monocytes % 9.6 % (2.0-10.0) 02/06/19 23:00 Eosinophils % 1.4 % (0.0-5.0) 02/06/19 23:00 Basophils % 0.4 % (0.0-2.0) 02/06/19 23:00 Sodium 123 mEq/L (136-145) L 02/11/19 13:13 Potassium 4.0 mEq/L (3.5-5.1) 02/11/19 13:13 Chloride 94 mEq/L (98-107) L 02/11/19 13:13 Carbon Dioxide 22.0 mEq/L (21.0-31.0) 02/11/19 13:13 Anion Gap 11.0 (7.0-16.0) 02/11/19 13:13 BUN 17 mg/dL (7-25) 02/11/19 13:13 Creatinine 0.6 mg/dL (0.6-1.2) 02/11/19 13:13 Est GFR ( Amer) > 60.0 ml/min (>90) 02/11/19 13:13 Est GFR (Non-Af Amer) > 60.0 ml/min 02/11/19 13:13 BUN/Creatinine Ratio 28.3 02/11/19 13:13 Glucose 181 mg/dL (70-105) H 02/11/19 13:13 POC Glucose 178 MG/DL (70 - 105) H 02/07/19 06:50 Calcium 8.9 mg/dL (8.6-10.3) 02/11/19 13:13 Total Bilirubin 0.4 mg/dL (0.3-1.0) 02/11/19 13:13 AST 33 U/L (13-39) 02/11/19 13:13 ALT 34 U/L (7-52) 02/11/19 13:13 Alkaline Phosphatase 73 U/L (34-104) 02/11/19 13:13 Total Protein 6.3 gm/dL (6.0-8.3) 02/11/19 13:13 Albumin 3.5 gm/dL (3.7-5.3) L 02/11/19 13:13 Globulin 2.8 gm/dL 02/11/19 13:13 Albumin/Globulin Ratio 1.3 (1.0-1.8) 02/11/19 13:13 Triglycerides 149 mg/dL (<150) 02/07/19 00:00 Cholesterol 169 mg/dL (<200) 02/07/19 00:00 LDL Cholesterol Direct 95 mg/dL (75-193) 02/07/19 00:00 HDL Cholesterol 52 mg/dL (23-92) 02/07/19 00:00 Urine Source CLEAN C 02/06/19 20:30 Urine Color YELLOW 02/06/19 20:30 Urine Clarity CLEAR (CLEAR) 02/06/19 20:30 Urine pH 6.0 (4.6 - 8.0) 02/06/19 20:30 Ur Specific [place] 1.015 (1.005-1.030) 02/06/19 20:30 Urine Protein 100 mg/dL (NEGATIVE) H 02/06/19 20:30 Urine Glucose (UA) >=1000 mg/dL (NEGATIVE) H 02/06/19 20:30 Urine Ketones NEGATIVE mg/dL (NEGATIVE) 02/06/19 20:30 Urine Blood TRACE (NEGATIVE) 02/06/19 20:30 Urine Nitrate NEGATIVE (NEGATIVE) 02/06/19 20:30 Urine Bilirubin NEGATIVE (NEGATIVE) 02/06/19 20:30 Urine Urobilinogen 0.2 E.U./dL (0.2 - 1.0) 02/06/19 20:30 Ur Leukocyte Esterase NEGATIVE (NEGATIVE) 02/06/19 20:30 Urine RBC NONE SEEN /hpf (0-5) 02/06/19 20:30 Urine WBC 0-2 /hpf (0-5) 02/06/19 20:30 Ur Epithelial Cells NONE SEEN /lpf (FEW) 02/06/19 20:30 Urine Bacteria NONE SEEN /hpf (NONE SEEN) 02/06/19 20:30 Valproic Acid 30.6 ug/mL (50.0-100.0) L 02/07/19 05:30 - Physical Exam Vitals and I&O: Vital Signs Temp 97.5 F 02/12/19 14:00 Pulse 71 02/12/19 14:00 Resp 18 02/12/19 14:00 BP 125/60 02/12/19 14:00 Pulse Ox 96 02/12/19 14:00 Intake & Output 02/11/19 02/12/19 02/12/19 18:59 06:59 18:59 Intake Total 1200 120 Balance 1200 120 Intake: Oral 1200 120 Other: # Voids 4 # Bowel Movements 1 Active Medications: Current Medications Acetaminophen (Tylenol) 650 mg PO Q4HR PRN PRN Reason: Mild Pain / Temp above 100 Stop: 04/08/19 00:18 Last Admin: 02/12/19 14:49 Dose: 650 mg Al Hydrox/Mg Hydrox/Simethicone (Maalox) 30 ml PO Q4HR PRN PRN Reason: GI DISTRESS Stop: 04/08/19 00:21 Aspirin (Aspirin Chewable) 81 mg PO DAILY [facility] Stop: 04/08/19 08:59 Last Admin: 02/12/19 08:49 Dose: 81 mg Dextrose (Glutose 40%) 18.75 gm PO PRN PRN PRN Reason: BS below 70 & tolerate po Stop: 04/08/19 00:21 Donepezil HCl (Aricept) 10 mg PO DAILY [facility] Stop: 04/08/19 08:59 Last Admin: 02/12/19 08:49 Dose: 10 mg Ergocalciferol (Vitamin D2) 50,000 iu PO QFRI [facility] Stop: 04/14/19 08:59 Glucagon (Glucagen) 1 mg IM PRN PRN PRN Reason: BS below 70 & Dextrose ineffec Stop: 04/08/19 00:21 Insulin Glargine (Lantus Insulin) 25 units SUBQ DAILY [facility] Stop: 04/08/19 08:59 Last Admin: 02/12/19 08:50 Dose: 25 units Insulin Human Lispro (Humalog Insulin Sliding Scale) 0 units SUBQ ACHS [facility]; Protocol Stop: 04/08/19 07:29 Last Admin: 02/12/19 17:28 Dose: Not Given Magnesium Hydroxide (Milk Of Magnesia) 30 ml PO HS PRN PRN Reason: Constipation Stop: 04/08/19 00:21 Memantine (Namenda) 10 mg PO BID [facility] Stop: 04/08/19 08:59 Last Admin: 02/12/19 17:31 Dose: 10 mg Multivitamins/Vitamin C (Theragran) 1 tab PO DAILY [facility] Stop: 04/08/19 08:59 Last Admin: 02/12/19 08:49 Dose: 1 tab Quetiapine Fumarate (Seroquel) 37.5 mg PO HS [facility]; Protocol Stop: 04/13/19 20:59 Sodium Chloride (Nacl Tab) 1 gm PO BID [facility] Stop: 04/12/19 16:59 Last Admin: 02/12/19 17:31 Dose: 1 gm Tramadol HCl (Ultram) 50 mg PO TID PRN PRN Reason: Pain (Severe) LEVEL 7-10 Stop: 04/08/19 00:21 Last Admin: 02/08/19 18:41 Dose: 50 mg Zolpidem Tartrate (Ambien) 5 mg PO HS PRN PRN Reason: Insomnia Stop: 04/08/19 00:18 Last Admin: 02/11/19 22:26 Dose: 5 mg General: Alert, No acute distress HEENT: Atraumatic Neck: Supple Cardiovascular: Regular rate Lungs: Clear to auscultation Abdomen: Bowel sounds Extremities: Other (No edema) Neurological: Normal gait Skin: Other (Warm and dry) Psych/Mental Status: Other (confused) Assessment/Plan - Assessment Assessment: Patient is awake, alert, calm not oriented. Dx: Increased in agitation, DM, Hyponatremia - Plan Plan: Patient is follow by Psychiqtry, she is continue with home meds. Sodium Tabs are added to treatment. Will continue to monitor. Nutritional Asmnt/Malnutr-PDOC - Dietary Evaluation Malnutrition Findings (Please click <Entered> for more info): Nutritional Asmnt/Malnutrition Start: 02/07/19 09: 10 Text: Status: Complete Freq: Protocol: Document 02/07/19 09:10 JOSE (Rec: 02/07/19 09:58 JOSE BELTRAN- [email or web address]) Nutritional Asmnt/Malnutrition Patient General Information Nutritional Screening High Risk Diagnosis Psychosis Pertinent Medical Hx/Surgical Hx Psychosis, DM, HTN, Dementia Subjective Information Consult received for DM. Per nursing notes, patient is confused and forgetful. In bed at time of visit. Not able to answer questions regarding diet history. Current Diet Order/ Nutrition Support 60 gm CCHO, 2gm Sodium Patient / S.O Not Indicated Pertinent Medications maalox, Vitamin D2, Glucagon, lantus, humalog, MOM, Theragran Pertinent Labs (02/06) Na 129, glucose 256 Nutritional Hx/Data Height 1.55 m Height (Calculated Centimeters) 154.9 Current Weight (lbs) 69.4 kg Weight (Calculated Kilograms) 69.4 Weight (Calculated Grams) 08377.6 [place] Body Weight 105 % [place] Body Weight 145 Body Mass Index (BMI) 28.9 Recent Weight Change No Weight Status Overweight GI Symptoms GI Symptoms None Last BM none noted since admission Difficult in: None Food Allergies No Cultural/Ethnic/Taoist Belief none indicated Usual diet at home unknown Skin Integrity/Comment: Robe 21, intact Current %PO Good (75-100%) Estimated Nutritional Goals BEE in Kcals: Using Current wt Calories/Kcals/Kg 69.5kg CBW 22-27 Kcals Calculated ~2057-3917 kcal/day Protein: Using Current wt Protein g/k.8-1 gm/kg Protein Calculated ~55-70 gm/day Fluid: ml ~3234-9817 ml/day (1 ml/kcal) Nutritional Problem 1. Problem Problem Altered nutrition related lab values related to Etiology electrolyte imbalance, hyperglycemia aeb Signs/Symptoms: Na 129, glucose 256 Intervention/Recommendation Comments 1. Continue with 60 gm CCHO, 2gm Sodium diet as tolerated. 2. MD to adjust insulin regimen as needed for optimal glycemic control. 3. Consider fluid restiction if patient remains hyponatremic. Expected Outcomes/Goals Expected Outcomes/Goals PO intake to meet >75% of nutritional needs, weight stability or trend toward ideal body weight, skin intact , nutrition related labs to approach WNL F/U MR 02/10-
--- NOTE | 2019-02-13 00:38 | Progress Notes ---
DATE: 02/12/2019 The patient in the hospital, somewhat sluggish today. Sleeping most of the day. Sodium continues to drop. Primary medical doctor is aware and is initiating treatment. Sodium was at 129 on the , now dropped to 123. Her glucose was also increasing. Depakote level at 30.6, likely the main culprit is going to be oxcarbamazepine, which I did decrease by 50% and I will be stopping today. The patient came to the hospital on oxcarbamazepine and so it is unclear as to why she is having hyponatremia at this point. The patient is oriented to name, place, situation, "I guess I fought with my family," remains pretty impulsive, unpredictable, but calmer at this time. I also will stop the Depakote given concerns about her low sodium as well although Depakote is less likely culprit, but will err on the side of caution. Continue to monitor. Continue low dose Seroquel. I will stop the morning dose and just continue the evening dose for now until the patient is somewhat more awake and alert. Vitals were reviewed, they appear fairly stable. Blood pressure 135/76, heart rate of 76. JOB# [id number]
[2019-02-13] MEDS: INSULIN LISPRO SLIDING SCALE 100 UNITS/ML UNIT SUBQ SCH ×4 (06:35→20:10)
[2019-02-13 06:42] LABS: HEMATOCRIT 43.4 % (41.0-60); HEMOGLOBIN 14.7 gm/dL (12-16); MEAN CELL VOLUME 93.4 fl (81-100); MEAN CORPUSCULAR HEMOGLOBIN 31.7 pg (27.0-31.0); MEAN CORPUSCULAR HGB CONC 33.9 pg (28.0-36.0); MEAN PLATELET VOLUME 7.7 fl; PLATELET COUNT 137 Th/cmm (150-400); RED BLOOD COUNT 4.65 Mil/cmm (3.80-5.20); RED CELL DISTRIBUTION WIDTH 12.4 % (11.5-20.0); WHITE BLOOD COUNT 6.6 Th/cmm (4.8-10.8)
[2019-02-13 06:58] LABS: ALB/GLOB RATIO 1.2 (1.0-1.8); ALBUMIN 3.6 gm/dL (3.7-5.3); ALKALINE PHOSPHATASE 63 U/L (34-104); ANION GAP 12.6 (7.0-16.0); BILIRUBIN,TOTAL 0.6 mg/dL (0.3-1.0); BUN - UREA NITROGEN 17 mg/dL (7-25); CALCIUM SERUM 9.2 mg/dL (8.6-10.3); CARBON DIOXIDE 22.1 mEq/L (21.0-31.0); CHLORIDE 100 mEq/L (98-107); CREATININE - SERUM 0.7 mg/dL (0.6-1.2); GFR AFRICAN-AMERICAN > 60.0 ml/min (>90); GFR NON AFRICAN-AMERICAN > 60.0 ml/min; GLUCOSE 98 mg/dL (70-105); POTASSIUM SERUM 3.7 mEq/L (3.5-5.1); SGOT 37 U/L (13-39); SGPT/ALT 34 U/L (7-52); SODIUM SERUM 131 mEq/L (136-145); TOTAL PROTEIN,SERUM 6.6 gm/dL (6.0-8.3)
[2019-02-13 08:32] LABS: BAND NEUTROPHILE 0 % (0-10); BASOPHIL 0 % (0-3); EOSINOPHIL 5 % (0-5); LYMPHOCYTE 45 % (20-50); MONOCYTE 9 % (2-10); NEUTROPHILS 41 % (40-80)
[2019-02-13 08:33] LABS: PLATELET ESTIMATE DECREASED PLATELETS (NORMAL)
--- NOTE | 2019-02-13 09:02 | General Progress Note ---
Subjective - Review of Systems Service Date: 02/13/19 Subjective: I am fine Objective - Results Result Diagrams: 02/13/19 06:10 02/13/19 06:10 Recent Labs: Laboratory Last Values WBC 6.6 Th/cmm (4.8-10.8) 02/13/19 06:10 RBC 4.65 Mil/cmm (3.80-5.20) 02/13/19 06:10 Hgb 14.7 gm/dL (12-16) 02/13/19 06:10 Hct 43.4 % (41.0-60) 02/13/19 06:10 MCV 93.4 fl (81-100) 02/13/19 06:10 MCH 31.7 pg (27.0-31.0) H 02/13/19 06:10 MCHC Differential 33.9 pg (28.0-36.0) 02/13/19 06:10 RDW 12.4 % (11.5-20.0) 02/13/19 06:10 Plt Count 137 Th/cmm (150-400) L 02/13/19 06:10 MPV 7.7 fl 02/13/19 06:10 Add Manual Diff YES 02/13/19 06:10 Neutrophils % 56.9 % (40.0-80.0) 02/06/19 23:00 Band Neutrophils % 0 % (0-10) 02/13/19 06:10 Lymphocytes % 31.7 % (20.0-50.0) 02/06/19 23:00 Monocytes % 9.6 % (2.0-10.0) 02/06/19 23:00 Eosinophils % 1.4 % (0.0-5.0) 02/06/19 23:00 Basophils % 0.4 % (0.0-2.0) 02/06/19 23:00 Neutrophils (Manual) 41 % (40-80) 02/13/19 06:10 Lymphocytes 45 % (20-50) 02/13/19 06:10 Monocytes 9 % (2-10) 02/13/19 06:10 Eosinophils 5 % (0-5) 02/13/19 06:10 Basophils 0 % (0-3) 02/13/19 06:10 Platelet Estimate DECREASED PLATELETS (NORMAL) 02/13/19 06:10 Sodium 131 mEq/L (136-145) L 02/13/19 06:10 Potassium 3.7 mEq/L (3.5-5.1) 02/13/19 06:10 Chloride 100 mEq/L (98-107) 02/13/19 06:10 Carbon Dioxide 22.1 mEq/L (21.0-31.0) 02/13/19 06:10 Anion Gap 12.6 (7.0-16.0) 02/13/19 06:10 BUN 17 mg/dL (7-25) 02/13/19 06:10 Creatinine 0.7 mg/dL (0.6-1.2) 02/13/19 06:10 Est GFR ( Amer) > 60.0 ml/min (>90) 02/13/19 06:10 Est GFR (Non-Af Amer) > 60.0 ml/min 02/13/19 06:10 BUN/Creatinine Ratio 24.3 02/13/19 06:10 Glucose 98 mg/dL (70-105) 02/13/19 06:10 POC Glucose 178 MG/DL (70 - 105) H 02/07/19 06:50 Calcium 9.2 mg/dL (8.6-10.3) 02/13/19 06:10 Total Bilirubin 0.6 mg/dL (0.3-1.0) 02/13/19 06:10 AST 37 U/L (13-39) 02/13/19 06:10 ALT 34 U/L (7-52) 02/13/19 06:10 Alkaline Phosphatase 63 U/L (34-104) 02/13/19 06:10 Total Protein 6.6 gm/dL (6.0-8.3) 02/13/19 06:10 Albumin 3.6 gm/dL (3.7-5.3) L 02/13/19 06:10 Globulin 3.0 gm/dL 02/13/19 06:10 Albumin/Globulin Ratio 1.2 (1.0-1.8) 02/13/19 06:10 Triglycerides 149 mg/dL (<150) 02/07/19 00:00 Cholesterol 169 mg/dL (<200) 02/07/19 00:00 LDL Cholesterol Direct 95 mg/dL (75-193) 02/07/19 00:00 HDL Cholesterol 52 mg/dL (23-92) 02/07/19 00:00 Urine Source CLEAN C 02/06/19 20:30 Urine Color YELLOW 02/06/19 20:30 Urine Clarity CLEAR (CLEAR) 02/06/19 20:30 Urine pH 6.0 (4.6 - 8.0) 02/06/19 20:30 Ur Specific [place] 1.015 (1.005-1.030) 02/06/19 20:30 Urine Protein 100 mg/dL (NEGATIVE) H 02/06/19 20:30 Urine Glucose (UA) >=1000 mg/dL (NEGATIVE) H 02/06/19 20:30 Urine Ketones NEGATIVE mg/dL (NEGATIVE) 02/06/19 20:30 Urine Blood TRACE (NEGATIVE) 02/06/19 20:30 Urine Nitrate NEGATIVE (NEGATIVE) 02/06/19 20:30 Urine Bilirubin NEGATIVE (NEGATIVE) 02/06/19 20:30 Urine Urobilinogen 0.2 E.U./dL (0.2 - 1.0) 02/06/19 20:30 Ur Leukocyte Esterase NEGATIVE (NEGATIVE) 02/06/19 20:30 Urine RBC NONE SEEN /hpf (0-5) 02/06/19 20:30 Urine WBC 0-2 /hpf (0-5) 02/06/19 20:30 Ur Epithelial Cells NONE SEEN /lpf (FEW) 02/06/19 20:30 Urine Bacteria NONE SEEN /hpf (NONE SEEN) 02/06/19 20:30 Valproic Acid 30.6 ug/mL (50.0-100.0) L 02/07/19 05:30 - Physical Exam Vitals and I&O: Vital Signs Temp 97.2 F 02/13/19 06:14 Pulse 76 02/13/19 06:14 Resp 18 02/13/19 06:14 BP 131/86 02/13/19 06:14 Pulse Ox 97 02/13/19 06:14 Intake & Output 02/12/19 02/13/19 02/13/19 18:59 06:59 18:59 Intake Total 800 120 Balance 800 120 Intake: Oral 800 120 Other: # Voids 3 3 # Bowel Movements 0 Active Medications: Current Medications Acetaminophen (Tylenol) 650 mg PO Q4HR PRN PRN Reason: Mild Pain / Temp above 100 Stop: 04/08/19 00:18 Last Admin: 02/12/19 14:49 Dose: 650 mg Al Hydrox/Mg Hydrox/Simethicone (Maalox) 30 ml PO Q4HR PRN PRN Reason: GI DISTRESS Stop: 04/08/19 00:21 Aspirin (Aspirin Chewable) 81 mg PO DAILY [facility] Stop: 04/08/19 08:59 Last Admin: 02/12/19 08:49 Dose: 81 mg Dextrose (Glutose 40%) 18.75 gm PO PRN PRN PRN Reason: BS below 70 & tolerate po Stop: 04/08/19 00:21 Donepezil HCl (Aricept) 10 mg PO DAILY [facility] Stop: 04/08/19 08:59 Last Admin: 02/12/19 08:49 Dose: 10 mg Ergocalciferol (Vitamin D2) 50,000 iu PO QFRI [facility] Stop: 04/14/19 08:59 Glucagon (Glucagen) 1 mg IM PRN PRN PRN Reason: BS below 70 & Dextrose ineffec Stop: 04/08/19 00:21 Insulin Glargine (Lantus Insulin) 25 units SUBQ DAILY [facility] Stop: 04/08/19 08:59 Last Admin: 02/12/19 08:50 Dose: 25 units Insulin Human Lispro (Humalog Insulin Sliding Scale) 0 units SUBQ ACHS [facility]; Protocol Stop: 04/08/19 07:29 Last Admin: 02/13/19 06:35 Dose: Not Given Magnesium Hydroxide (Milk Of Magnesia) 30 ml PO HS PRN PRN Reason: Constipation Stop: 04/08/19 00:21 Memantine (Namenda) 10 mg PO BID [facility] Stop: 04/08/19 08:59 Last Admin: 02/12/19 17:31 Dose: 10 mg Multivitamins/Vitamin C (Theragran) 1 tab PO DAILY [facility] Stop: 04/08/19 08:59 Last Admin: 02/12/19 08:49 Dose: 1 tab Quetiapine Fumarate (Seroquel) 37.5 mg PO HS [facility]; Protocol Stop: 04/13/19 20:59 Last Admin: 02/12/19 21:38 Dose: 37.5 mg Sodium Chloride (Nacl Tab) 1 gm PO BID [facility] Stop: 04/12/19 16:59 Last Admin: 02/12/19 17:31 Dose: 1 gm Tramadol HCl (Ultram) 50 mg PO TID PRN PRN Reason: Pain (Severe) LEVEL 7-10 Stop: 04/08/19 00:21 Last Admin: 02/08/19 18:41 Dose: 50 mg Zolpidem Tartrate (Ambien) 5 mg PO HS PRN PRN Reason: Insomnia Stop: 04/08/19 00:18 Last Admin: 02/11/19 22:26 Dose: 5 mg General: Alert, No acute distress HEENT: Atraumatic Neck: Supple Cardiovascular: Regular rate Lungs: Clear to auscultation Abdomen: Bowel sounds Extremities: Other (No edema) Neurological: Normal gait Skin: Other (Warm and dry) Psych/Mental Status: Other (confused) Assessment/Plan - Assessment Assessment: Patient is awake, alert, calm not oriented. Na improving. Dx: Increased in agitation, DM, Hyponatremia - Plan Plan: Patient is follow by Psychiq[facility], she is continue with home meds. Sodium Tabs are added to treatment. Will continue to monitor. Nutritional Asmnt/Malnutr-PDOC - Dietary Evaluation Malnutrition Findings (Please click <Entered> for more info): Nutritional Asmnt/Malnutrition Start: 02/07/19 09: 10 Text: Status: Complete Freq: Protocol: Document 02/07/19 09:10 JOSE (Rec: 02/07/19 09:58 JOSE BELTRAN- [email or web address]) Nutritional Asmnt/Malnutrition Patient General Information Nutritional Screening High Risk Diagnosis Psychosis Pertinent Medical Hx/Surgical Hx Psychosis, DM, HTN, Dementia Subjective Information Consult received for DM. Per nursing notes, patient is confused and forgetful. In bed at time of visit. Not able to answer questions regarding diet history. Current Diet Order/ Nutrition Support 60 gm CCHO, 2gm Sodium Patient / S.O Not Indicated Pertinent Medications maalox, Vitamin D2, Glucagon, lantus, humalog, MOM, Theragran Pertinent Labs (02/06) Na 129, glucose 256 Nutritional Hx/Data Height 1.55 m Height (Calculated Centimeters) 154.9 Current Weight (lbs) 69.4 kg Weight (Calculated Kilograms) 69.4 Weight (Calculated Grams) 82398.6 [place] Body Weight 105 % [place] Body Weight 145 Body Mass Index (BMI) 28.9 Recent Weight Change No Weight Status Overweight GI Symptoms GI Symptoms None Last BM none noted since admission Difficult in: None Food Allergies No Cultural/Ethnic/Anglican Belief none indicated Usual diet at home unknown Skin Integrity/Comment: Robe 21, intact Current %PO Good (75-100%) Estimated Nutritional Goals BEE in Kcals: Using Current wt Calories/Kcals/Kg 69.5kg CBW 22-27 Kcals Calculated ~4539-1060 kcal/day Protein: Using Current wt Protein g/k.8-1 gm/kg Protein Calculated ~55-70 gm/day Fluid: ml ~6764-4406 ml/day (1 ml/kcal) Nutritional Problem 1. Problem Problem Altered nutrition related lab values related to Etiology electrolyte imbalance, hyperglycemia aeb Signs/Symptoms: Na 129, glucose 256 Intervention/Recommendation Comments 1. Continue with 60 gm CCHO, 2gm Sodium diet as tolerated. 2. MD to adjust insulin regimen as needed for optimal glycemic control. 3. Consider fluid restiction if patient remains hyponatremic. Expected Outcomes/Goals Expected Outcomes/Goals PO intake to meet >75% of nutritional needs, weight stability or trend toward ideal body weight, skin intact , nutrition related labs to approach WNL F/U MR 02/10-
[2019-02-13] MEDS: Multivitamin Tab PO SCH (09:45)
[2019-02-13] MEDS: Aspirin 81mg Chewable Tab PO SCH (09:45)
[2019-02-13] MEDS: Insulin Glargine 100 units/ml 10ml Vial SUBQ SCH (09:48)
[2019-02-14] MEDS: INSULIN LISPRO SLIDING SCALE 100 UNITS/ML UNIT SUBQ SCH ×4 (06:30→20:18)
[2019-02-14] MEDS: Multivitamin Tab PO SCH (08:53)
[2019-02-14] MEDS: Aspirin 81mg Chewable Tab PO SCH (08:53)
[2019-02-14] MEDS: Insulin Glargine 100 units/ml 10ml Vial SUBQ SCH (08:54)
--- NOTE | 2019-02-14 10:22 | General Progress Note ---
Subjective - Review of Systems Service Date: 02/14/18 Subjective: I am ok Objective - Results Result Diagrams: 02/13/19 06:10 02/13/19 06:10 Recent Labs: Laboratory Last Values WBC 6.6 Th/cmm (4.8-10.8) 02/13/19 06:10 RBC 4.65 Mil/cmm (3.80-5.20) 02/13/19 06:10 Hgb 14.7 gm/dL (12-16) 02/13/19 06:10 Hct 43.4 % (41.0-60) 02/13/19 06:10 MCV 93.4 fl (81-100) 02/13/19 06:10 MCH 31.7 pg (27.0-31.0) H 02/13/19 06:10 MCHC Differential 33.9 pg (28.0-36.0) 02/13/19 06:10 RDW 12.4 % (11.5-20.0) 02/13/19 06:10 Plt Count 137 Th/cmm (150-400) L 02/13/19 06:10 MPV 7.7 fl 02/13/19 06:10 Add Manual Diff YES 02/13/19 06:10 Neutrophils % 56.9 % (40.0-80.0) 02/06/19 23:00 Band Neutrophils % 0 % (0-10) 02/13/19 06:10 Lymphocytes % 31.7 % (20.0-50.0) 02/06/19 23:00 Monocytes % 9.6 % (2.0-10.0) 02/06/19 23:00 Eosinophils % 1.4 % (0.0-5.0) 02/06/19 23:00 Basophils % 0.4 % (0.0-2.0) 02/06/19 23:00 Neutrophils (Manual) 41 % (40-80) 02/13/19 06:10 Lymphocytes 45 % (20-50) 02/13/19 06:10 Monocytes 9 % (2-10) 02/13/19 06:10 Eosinophils 5 % (0-5) 02/13/19 06:10 Basophils 0 % (0-3) 02/13/19 06:10 Platelet Estimate DECREASED PLATELETS (NORMAL) 02/13/19 06:10 Sodium 131 mEq/L (136-145) L 02/13/19 06:10 Potassium 3.7 mEq/L (3.5-5.1) 02/13/19 06:10 Chloride 100 mEq/L (98-107) 02/13/19 06:10 Carbon Dioxide 22.1 mEq/L (21.0-31.0) 02/13/19 06:10 Anion Gap 12.6 (7.0-16.0) 02/13/19 06:10 BUN 17 mg/dL (7-25) 02/13/19 06:10 Creatinine 0.7 mg/dL (0.6-1.2) 02/13/19 06:10 Est GFR ( Amer) > 60.0 ml/min (>90) 02/13/19 06:10 Est GFR (Non-Af Amer) > 60.0 ml/min 02/13/19 06:10 BUN/Creatinine Ratio 24.3 02/13/19 06:10 Glucose 98 mg/dL (70-105) 02/13/19 06:10 POC Glucose 91 MG/DL (70 - 105) 02/14/19 05:47 Calcium 9.2 mg/dL (8.6-10.3) 02/13/19 06:10 Total Bilirubin 0.6 mg/dL (0.3-1.0) 02/13/19 06:10 AST 37 U/L (13-39) 02/13/19 06:10 ALT 34 U/L (7-52) 02/13/19 06:10 Alkaline Phosphatase 63 U/L (34-104) 02/13/19 06:10 Total Protein 6.6 gm/dL (6.0-8.3) 02/13/19 06:10 Albumin 3.6 gm/dL (3.7-5.3) L 02/13/19 06:10 Globulin 3.0 gm/dL 02/13/19 06:10 Albumin/Globulin Ratio 1.2 (1.0-1.8) 02/13/19 06:10 Triglycerides 149 mg/dL (<150) 02/07/19 00:00 Cholesterol 169 mg/dL (<200) 02/07/19 00:00 LDL Cholesterol Direct 95 mg/dL (75-193) 02/07/19 00:00 HDL Cholesterol 52 mg/dL (23-92) 02/07/19 00:00 Urine Source CLEAN C 02/06/19 20:30 Urine Color YELLOW 02/06/19 20:30 Urine Clarity CLEAR (CLEAR) 02/06/19 20:30 Urine pH 6.0 (4.6 - 8.0) 02/06/19 20:30 Ur Specific [place] 1.015 (1.005-1.030) 02/06/19 20:30 Urine Protein 100 mg/dL (NEGATIVE) H 02/06/19 20:30 Urine Glucose (UA) >=1000 mg/dL (NEGATIVE) H 02/06/19 20:30 Urine Ketones NEGATIVE mg/dL (NEGATIVE) 02/06/19 20:30 Urine Blood TRACE (NEGATIVE) 02/06/19 20:30 Urine Nitrate NEGATIVE (NEGATIVE) 02/06/19 20:30 Urine Bilirubin NEGATIVE (NEGATIVE) 02/06/19 20:30 Urine Urobilinogen 0.2 E.U./dL (0.2 - 1.0) 02/06/19 20:30 Ur Leukocyte Esterase NEGATIVE (NEGATIVE) 02/06/19 20:30 Urine RBC NONE SEEN /hpf (0-5) 02/06/19 20:30 Urine WBC 0-2 /hpf (0-5) 02/06/19 20:30 Ur Epithelial Cells NONE SEEN /lpf (FEW) 02/06/19 20:30 Urine Bacteria NONE SEEN /hpf (NONE SEEN) 02/06/19 20:30 Valproic Acid 30.6 ug/mL (50.0-100.0) L 02/07/19 05:30 - Physical Exam Vitals and I&O: Vital Signs Temp 97.2 F 02/14/19 06:29 Pulse 62 02/14/19 06:29 Resp 19 02/14/19 06:29 BP 128/56 02/14/19 06:29 Pulse Ox 94 02/14/19 06:29 Intake & Output 02/13/19 02/14/19 02/14/19 18:59 06:59 18:59 Intake Total 1000 720 Balance 1000 720 Intake: Oral 1000 720 Other: # Voids 3 2 # Bowel Movements 1 1 Active Medications: Current Medications Acetaminophen (Tylenol) 650 mg PO Q4HR PRN PRN Reason: Mild Pain / Temp above 100 Stop: 04/08/19 00:18 Last Admin: 02/13/19 20:09 Dose: 650 mg Al Hydrox/Mg Hydrox/Simethicone (Maalox) 30 ml PO Q4HR PRN PRN Reason: GI DISTRESS Stop: 04/08/19 00:21 Aspirin (Aspirin Chewable) 81 mg PO DAILY [facility] Stop: 04/08/19 08:59 Last Admin: 02/14/19 08:53 Dose: 81 mg Dextrose (Glutose 40%) 18.75 gm PO PRN PRN PRN Reason: BS below 70 & tolerate po Stop: 04/08/19 00:21 Donepezil HCl (Aricept) 10 mg PO DAILY [facility] Stop: 04/08/19 08:59 Last Admin: 02/14/19 08:53 Dose: 10 mg Ergocalciferol (Vitamin D2) 50,000 iu PO QFRI [facility] Stop: 04/14/19 08:59 Last Admin: 02/13/19 16:19 Dose: 50,000 iu Glucagon (Glucagen) 1 mg IM PRN PRN PRN Reason: BS below 70 & Dextrose ineffec Stop: 04/08/19 00:21 Insulin Glargine (Lantus Insulin) 25 units SUBQ DAILY [facility] Stop: 04/08/19 08:59 Last Admin: 02/14/19 08:54 Dose: 25 units Insulin Human Lispro (Humalog Insulin Sliding Scale) 0 units SUBQ ACHS [facility]; Protocol Stop: 04/08/19 07:29 Last Admin: 02/14/19 06:30 Dose: Not Given Magnesium Hydroxide (Milk Of Magnesia) 30 ml PO HS PRN PRN Reason: Constipation Stop: 04/08/19 00:21 Memantine (Namenda) 10 mg PO BID [facility] Stop: 04/08/19 08:59 Last Admin: 02/14/19 08:53 Dose: 10 mg Multivitamins/Vitamin C (Theragran) 1 tab PO DAILY [facility] Stop: 04/08/19 08:59 Last Admin: 02/14/19 08:53 Dose: 1 tab Quetiapine Fumarate (Seroquel) 37.5 mg PO HS [facility]; Protocol Stop: 04/13/19 20:59 Last Admin: 02/13/19 20:08 Dose: 37.5 mg Sodium Chloride (Nacl Tab) 1 gm PO BID [facility] Stop: 04/12/19 16:59 Last Admin: 02/14/19 08:53 Dose: 1 gm Tramadol HCl (Ultram) 50 mg PO TID PRN PRN Reason: Pain (Severe) LEVEL 7-10 Stop: 04/08/19 00:21 Last Admin: 02/08/19 18:41 Dose: 50 mg Zolpidem Tartrate (Ambien) 5 mg PO HS PRN PRN Reason: Insomnia Stop: 04/08/19 00:18 Last Admin: 02/11/19 22:26 Dose: 5 mg General: Alert, No acute distress HEENT: Atraumatic Neck: Supple Cardiovascular: Regular rate Lungs: Clear to auscultation Abdomen: Bowel sounds Extremities: Other (No edema) Neurological: Normal gait Skin: Other (Warm and dry) Psych/Mental Status: Other (confused) Assessment/Plan - Assessment Assessment: Patient is awake, alert, calm not oriented. Na improving. Dx: Increased in agitation, DM, Hyponatremia - Plan Plan: Patient is follow by Psychiq[facility], she is continue with home meds. Sodium Tabs are added to treatment. Will continue to monitor. Nutritional Asmnt/Malnutr-PDOC - Dietary Evaluation Malnutrition Findings (Please click <Entered> for more info): Nutritional Asmnt/Malnutrition Start: 02/07/19 09: 10 Text: Status: Complete Freq: Protocol: Document 02/07/19 09:10 JOSE (Rec: 02/07/19 09:58 JOSE RUBY- [id number]) Nutritional Asmnt/Malnutrition Patient General Information Nutritional Screening High Risk Diagnosis Psychosis Pertinent Medical Hx/Surgical Hx Psychosis, DM, HTN, Dementia Subjective Information Consult received for DM. Per nursing notes, patient is confused and forgetful. In bed at time of visit. Not able to answer questions regarding diet history. Current Diet Order/ Nutrition Support 60 gm CCHO, 2gm Sodium Patient / S.O Not Indicated Pertinent Medications maalox, Vitamin D2, Glucagon, lantus, humalog, MOM, Theragran Pertinent Labs (02/06) Na 129, glucose 256 Nutritional Hx/Data Height 1.55 m Height (Calculated Centimeters) 154.9 Current Weight (lbs) 69.4 kg Weight (Calculated Kilograms) 69.4 Weight (Calculated Grams) 46245.6 [place] Body Weight 105 % [place] Body Weight 145 Body Mass Index (BMI) 28.9 Recent Weight Change No Weight Status Overweight GI Symptoms GI Symptoms None Last BM none noted since admission Difficult in: None Food Allergies No Cultural/Ethnic/Presybeterian Belief none indicated Usual diet at home unknown Skin Integrity/Comment: Robe 21, intact Current %PO Good (75-100%) Estimated Nutritional Goals BEE in Kcals: Using Current wt Calories/Kcals/Kg 69.5kg CBW 22-27 Kcals Calculated ~5593-5401 kcal/day Protein: Using Current wt Protein g/k.8-1 gm/kg Protein Calculated ~55-70 gm/day Fluid: ml ~8939-1458 ml/day (1 ml/kcal) Nutritional Problem 1. Problem Problem Altered nutrition related lab values related to Etiology electrolyte imbalance, hyperglycemia aeb Signs/Symptoms: Na 129, glucose 256 Intervention/Recommendation Comments 1. Continue with 60 gm CCHO, 2gm Sodium diet as tolerated. 2. MD to adjust insulin regimen as needed for optimal glycemic control. 3. Consider fluid restiction if patient remains hyponatremic. Expected Outcomes/Goals Expected Outcomes/Goals PO intake to meet >75% of nutritional needs, weight stability or trend toward ideal body weight, skin intact , nutrition related labs to approach WNL F/U MR 02/10-
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
--- NOTE | 2019-02-14 19:21 | Progress Notes ---
DATE: 02/14/2019 DATE OF SERVICE: 02/14/2019 Dr. Suazo covering for Dr. Alvares. Chart reviewed and the patient interviewed. Also discussed the patient's condition with the staff and reviewed the records and labs. The patient is still confused and forgetful. The patient also is still wandering around the unit aimlessly and in a confused state. She also continued to ask for Tylenol for headache regardless. Staff was directing her and answering her questions. Yet she kept asking the same question over and over. Otherwise, the patient is compliant with taking her medications with no side effects of medications. ASSESSMENT: The patient is still confused. TREATMENT PLAN: Continue to monitor her behavior and her condition closely. Also, continue monitoring her behavior and also her vital signs. The patient continued to take Aricept 10 mg every day and Namenda 10 mg twice a day with no side effects. She also continued to take Seroquel 37.5 mg at bedtime. There were no side effects. The patient is still psychotic and agitated. Continue to monitor her behavior and her condition and continue adjusting psychotropic medications and working on behavioral modification. JOB# [id number]
[2019-02-15] MEDS: INSULIN LISPRO SLIDING SCALE 100 UNITS/ML UNIT SUBQ SCH ×4 (06:43→21:35)
[2019-02-15] MEDS: Multivitamin Tab PO SCH (09:52)
[2019-02-15] MEDS: Aspirin 81mg Chewable Tab PO SCH (09:53)
[2019-02-15] MEDS: Insulin Glargine 100 units/ml 10ml Vial SUBQ SCH (10:00)
[2019-02-16] MEDS: INSULIN LISPRO SLIDING SCALE 100 UNITS/ML UNIT SUBQ SCH ×4 (06:30→21:00)
[2019-02-16] MEDS: Aspirin 81mg Chewable Tab PO SCH (09:06)
[2019-02-16] MEDS: Multivitamin Tab PO SCH (09:07)
[2019-02-16] MEDS: Insulin Glargine 100 units/ml 10ml Vial SUBQ SCH (09:07)
--- NOTE | 2019-02-16 10:00 | Progress Notes ---
DATE: 02/15/2019 SUBJECTIVE: Chart was reviewed and the patient interviewed. Also, discussed the patient's condition with the staff and reviewed records and labs. The patient is still forgetful and confused. The patient also is still wandering around the unit asking staff and other patients to "I have headache and give me Tylenol." The patient is forgetful and forgets quickly what she needs and she repeats the questions. At the same time, the patient is compliant with taking her medications with no side effects of medications. ASSESSMENT: The patient is still confused and depressed. TREATMENT PLAN: Continue to monitor behavior and condition closely. Also, continue to work on her compliance with medications and continue to follow up. [facility]# [id number]
--- NOTE | 2019-02-16 10:43 | General Progress Note ---
Subjective - Review of Systems Service Date: 02/16/19 Subjective: I am ok Objective - Results Result Diagrams: 02/13/19 06:10 02/13/19 06:10 Recent Labs: Laboratory Last Values WBC 6.6 Th/cmm (4.8-10.8) 02/13/19 06:10 RBC 4.65 Mil/cmm (3.80-5.20) 02/13/19 06:10 Hgb 14.7 gm/dL (12-16) 02/13/19 06:10 Hct 43.4 % (41.0-60) 02/13/19 06:10 MCV 93.4 fl (81-100) 02/13/19 06:10 MCH 31.7 pg (27.0-31.0) H 02/13/19 06:10 MCHC Differential 33.9 pg (28.0-36.0) 02/13/19 06:10 RDW 12.4 % (11.5-20.0) 02/13/19 06:10 Plt Count 137 Th/cmm (150-400) L 02/13/19 06:10 MPV 7.7 fl 02/13/19 06:10 Add Manual Diff YES 02/13/19 06:10 Neutrophils % 56.9 % (40.0-80.0) 02/06/19 23:00 Band Neutrophils % 0 % (0-10) 02/13/19 06:10 Lymphocytes % 31.7 % (20.0-50.0) 02/06/19 23:00 Monocytes % 9.6 % (2.0-10.0) 02/06/19 23:00 Eosinophils % 1.4 % (0.0-5.0) 02/06/19 23:00 Basophils % 0.4 % (0.0-2.0) 02/06/19 23:00 Neutrophils (Manual) 41 % (40-80) 02/13/19 06:10 Lymphocytes 45 % (20-50) 02/13/19 06:10 Monocytes 9 % (2-10) 02/13/19 06:10 Eosinophils 5 % (0-5) 02/13/19 06:10 Basophils 0 % (0-3) 02/13/19 06:10 Platelet Estimate DECREASED PLATELETS (NORMAL) 02/13/19 06:10 Sodium 131 mEq/L (136-145) L 02/13/19 06:10 Potassium 3.7 mEq/L (3.5-5.1) 02/13/19 06:10 Chloride 100 mEq/L (98-107) 02/13/19 06:10 Carbon Dioxide 22.1 mEq/L (21.0-31.0) 02/13/19 06:10 Anion Gap 12.6 (7.0-16.0) 02/13/19 06:10 BUN 17 mg/dL (7-25) 02/13/19 06:10 Creatinine 0.7 mg/dL (0.6-1.2) 02/13/19 06:10 Est GFR ( Amer) > 60.0 ml/min (>90) 02/13/19 06:10 Est GFR (Non-Af Amer) > 60.0 ml/min 02/13/19 06:10 BUN/Creatinine Ratio 24.3 02/13/19 06:10 Glucose 98 mg/dL (70-105) 02/13/19 06:10 POC Glucose 122 MG/DL (70 - 105) H 02/16/19 06:18 Calcium 9.2 mg/dL (8.6-10.3) 02/13/19 06:10 Total Bilirubin 0.6 mg/dL (0.3-1.0) 02/13/19 06:10 AST 37 U/L (13-39) 02/13/19 06:10 ALT 34 U/L (7-52) 02/13/19 06:10 Alkaline Phosphatase 63 U/L (34-104) 02/13/19 06:10 Total Protein 6.6 gm/dL (6.0-8.3) 02/13/19 06:10 Albumin 3.6 gm/dL (3.7-5.3) L 02/13/19 06:10 Globulin 3.0 gm/dL 02/13/19 06:10 Albumin/Globulin Ratio 1.2 (1.0-1.8) 02/13/19 06:10 Triglycerides 149 mg/dL (<150) 02/07/19 00:00 Cholesterol 169 mg/dL (<200) 02/07/19 00:00 LDL Cholesterol Direct 95 mg/dL (75-193) 02/07/19 00:00 HDL Cholesterol 52 mg/dL (23-92) 02/07/19 00:00 Urine Source CLEAN C 02/06/19 20:30 Urine Color YELLOW 02/06/19 20:30 Urine Clarity CLEAR (CLEAR) 02/06/19 20:30 Urine pH 6.0 (4.6 - 8.0) 02/06/19 20:30 Ur Specific [place] 1.015 (1.005-1.030) 02/06/19 20:30 Urine Protein 100 mg/dL (NEGATIVE) H 02/06/19 20:30 Urine Glucose (UA) >=1000 mg/dL (NEGATIVE) H 02/06/19 20:30 Urine Ketones NEGATIVE mg/dL (NEGATIVE) 02/06/19 20:30 Urine Blood TRACE (NEGATIVE) 02/06/19 20:30 Urine Nitrate NEGATIVE (NEGATIVE) 02/06/19 20:30 Urine Bilirubin NEGATIVE (NEGATIVE) 02/06/19 20:30 Urine Urobilinogen 0.2 E.U./dL (0.2 - 1.0) 02/06/19 20:30 Ur Leukocyte Esterase NEGATIVE (NEGATIVE) 02/06/19 20:30 Urine RBC NONE SEEN /hpf (0-5) 02/06/19 20:30 Urine WBC 0-2 /hpf (0-5) 02/06/19 20:30 Ur Epithelial Cells NONE SEEN /lpf (FEW) 02/06/19 20:30 Urine Bacteria NONE SEEN /hpf (NONE SEEN) 02/06/19 20:30 Valproic Acid 30.6 ug/mL (50.0-100.0) L 02/07/19 05:30 - Physical Exam Vitals and I&O: Vital Signs Temp 96.8 F 02/16/19 06:16 Pulse 69 02/16/19 06:16 Resp 18 02/16/19 06:16 BP 134/65 02/16/19 06:16 Pulse Ox 93 02/16/19 06:16 Intake & Output 02/15/19 02/16/19 02/16/19 18:59 06:59 18:59 Intake Total 960 120 Balance 960 120 Intake: Oral 960 120 Other: # Voids 3 3 # Bowel Movements 1 0 Active Medications: Current Medications Acetaminophen (Tylenol) 650 mg PO Q4HR PRN PRN Reason: Mild Pain / Temp above 100 Stop: 04/08/19 00:18 Last Admin: 02/15/19 21:36 Dose: 650 mg Al Hydrox/Mg Hydrox/Simethicone (Maalox) 30 ml PO Q4HR PRN PRN Reason: GI DISTRESS Stop: 04/08/19 00:21 Aspirin (Aspirin Chewable) 81 mg PO DAILY [facility] Stop: 04/08/19 08:59 Last Admin: 02/16/19 09:06 Dose: 81 mg Dextrose (Glutose 40%) 18.75 gm PO PRN PRN PRN Reason: BS below 70 & tolerate po Stop: 04/08/19 00:21 Donepezil HCl (Aricept) 10 mg PO DAILY [facility] Stop: 04/08/19 08:59 Last Admin: 02/16/19 09:06 Dose: 10 mg Ergocalciferol (Vitamin D2) 50,000 iu PO QFRI [facility] Stop: 04/14/19 08:59 Last Admin: 02/13/19 16:19 Dose: 50,000 iu Glucagon (Glucagen) 1 mg IM PRN PRN PRN Reason: BS below 70 & Dextrose ineffec Stop: 04/08/19 00:21 Insulin Glargine (Lantus Insulin) 25 units SUBQ DAILY [facility] Stop: 04/08/19 08:59 Last Admin: 02/16/19 09:07 Dose: 25 units Insulin Human Lispro (Humalog Insulin Sliding Scale) 0 units SUBQ ACHS [facility]; Protocol Stop: 04/08/19 07:29 Last Admin: 02/16/19 06:30 Dose: Not Given Magnesium Hydroxide (Milk Of Magnesia) 30 ml PO HS PRN PRN Reason: Constipation Stop: 04/08/19 00:21 Memantine (Namenda) 10 mg PO BID [facility] Stop: 04/08/19 08:59 Last Admin: 02/16/19 09:07 Dose: 10 mg Multivitamins/Vitamin C (Theragran) 1 tab PO DAILY [facility] Stop: 04/08/19 08:59 Last Admin: 02/16/19 09:07 Dose: 1 tab Quetiapine Fumarate (Seroquel) 37.5 mg PO HS [facility]; Protocol Stop: 04/13/19 20:59 Last Admin: 02/15/19 21:36 Dose: 37.5 mg Sodium Chloride (Nacl Tab) 1 gm PO BID [facility] Stop: 04/12/19 16:59 Last Admin: 02/16/19 09:06 Dose: 1 gm Tramadol HCl (Ultram) 50 mg PO TID PRN PRN Reason: Pain (Severe) LEVEL 7-10 Stop: 04/08/19 00:21 Last Admin: 02/08/19 18:41 Dose: 50 mg Zolpidem Tartrate (Ambien) 5 mg PO HS PRN PRN Reason: Insomnia Stop: 04/08/19 00:18 Last Admin: 02/15/19 21:38 Dose: 5 mg General: Alert, No acute distress HEENT: Atraumatic Neck: Supple Cardiovascular: Regular rate Lungs: Clear to auscultation Abdomen: Bowel sounds Extremities: Other (No edema) Neurological: Normal gait Skin: Other (Warm and dry) Psych/Mental Status: Other (confused) Assessment/Plan - Assessment Assessment: Patient is awake, alert, calm not oriented. Na improving. Dx: Increased in agitation, DM, Hyponatremia - Plan Plan: Patient is follow by Psychiqtry, she is continue with home meds. Sodium Tabs are added to treatment. Will continue to monitor. Nutritional Asmnt/Malnutr-PDOC - Dietary Evaluation Malnutrition Findings (Please click <Entered> for more info): Nutritional Asmnt/Malnutrition Start: 02/07/19 09: 10 Text: Status: Complete Freq: Protocol: Document 02/07/19 09:10 JOSE (Rec: 02/07/19 09:58 JOSE RUBY- [email or web address]) Nutritional Asmnt/Malnutrition Patient General Information Nutritional Screening High Risk Diagnosis Psychosis Pertinent Medical Hx/Surgical Hx Psychosis, DM, HTN, Dementia Subjective Information Consult received for DM. Per nursing notes, patient is confused and forgetful. In bed at time of visit. Not able to answer questions regarding diet history. Current Diet Order/ Nutrition Support 60 gm CCHO, 2gm Sodium Patient / S.O Not Indicated Pertinent Medications maalox, Vitamin D2, Glucagon, lantus, humalog, MOM, Theragran Pertinent Labs (02/06) Na 129, glucose 256 Nutritional Hx/Data Height 1.55 m Height (Calculated Centimeters) 154.9 Current Weight (lbs) 69.4 kg Weight (Calculated Kilograms) 69.4 Weight (Calculated Grams) 24252.6 [place] Body Weight 105 % [place] Body Weight 145 Body Mass Index (BMI) 28.9 Recent Weight Change No Weight Status Overweight GI Symptoms GI Symptoms None Last BM none noted since admission Difficult in: None Food Allergies No Cultural/Ethnic/Presybeterian Belief none indicated Usual diet at home unknown Skin Integrity/Comment: Robe 21, intact Current %PO Good (75-100%) Estimated Nutritional Goals BEE in Kcals: Using Current wt Calories/Kcals/Kg 69.5kg CBW 22-27 Kcals Calculated ~4285-1332 kcal/day Protein: Using Current wt Protein g/k.8-1 gm/kg Protein Calculated ~55-70 gm/day Fluid: ml ~5903-0075 ml/day (1 ml/kcal) Nutritional Problem 1. Problem Problem Altered nutrition related lab values related to Etiology electrolyte imbalance, hyperglycemia aeb Signs/Symptoms: Na 129, glucose 256 Intervention/Recommendation Comments 1. Continue with 60 gm CCHO, 2gm Sodium diet as tolerated. 2. MD to adjust insulin regimen as needed for optimal glycemic control. 3. Consider fluid restiction if patient remains hyponatremic. Expected Outcomes/Goals Expected Outcomes/Goals PO intake to meet >75% of nutritional needs, weight stability or trend toward ideal body weight, skin intact , nutrition related labs to approach WNL F/U MR 02/10-
--- NOTE | 2019-02-16 23:08 | Progress Notes ---
DATE: SUBJECTIVE: Chart reviewed and the patient interviewed. Also discussed the patient's condition with the staff and reviewed records and labs. The patient is still confused and forgetful. The patient also is still wandering around the unit asking to take Tylenol for headache and keeps repeating the same, request over and over. The patient also still has difficulty following directions because of her confusion and irritability. On the other hand, the patient continued to comply with taking medications with no side effects of medications. ASSESSMENT: The patient is still confused and needs close observation. TREATMENT PLAN: Continue monitoring her behavior and her condition and continue adjusting psychotropic medications and followup. [facility]# [id number]
[2019-02-17] MEDS: INSULIN LISPRO SLIDING SCALE 100 UNITS/ML UNIT SUBQ SCH ×4 (06:40→20:32)
[2019-02-17] MEDS: Aspirin 81mg Chewable Tab PO SCH (08:38)
[2019-02-17] MEDS: Multivitamin Tab PO SCH (08:38)
--- NOTE | 2019-02-17 09:01 | General Progress Note ---
Subjective - Review of Systems Service Date: 02/17/19 Subjective: I am ok Objective - Results Result Diagrams: 02/13/19 06:10 02/13/19 06:10 Recent Labs: Laboratory Last Values WBC 6.6 Th/cmm (4.8-10.8) 02/13/19 06:10 RBC 4.65 Mil/cmm (3.80-5.20) 02/13/19 06:10 Hgb 14.7 gm/dL (12-16) 02/13/19 06:10 Hct 43.4 % (41.0-60) 02/13/19 06:10 MCV 93.4 fl (81-100) 02/13/19 06:10 MCH 31.7 pg (27.0-31.0) H 02/13/19 06:10 MCHC Differential 33.9 pg (28.0-36.0) 02/13/19 06:10 RDW 12.4 % (11.5-20.0) 02/13/19 06:10 Plt Count 137 Th/cmm (150-400) L 02/13/19 06:10 MPV 7.7 fl 02/13/19 06:10 Add Manual Diff YES 02/13/19 06:10 Neutrophils % 56.9 % (40.0-80.0) 02/06/19 23:00 Band Neutrophils % 0 % (0-10) 02/13/19 06:10 Lymphocytes % 31.7 % (20.0-50.0) 02/06/19 23:00 Monocytes % 9.6 % (2.0-10.0) 02/06/19 23:00 Eosinophils % 1.4 % (0.0-5.0) 02/06/19 23:00 Basophils % 0.4 % (0.0-2.0) 02/06/19 23:00 Neutrophils (Manual) 41 % (40-80) 02/13/19 06:10 Lymphocytes 45 % (20-50) 02/13/19 06:10 Monocytes 9 % (2-10) 02/13/19 06:10 Eosinophils 5 % (0-5) 02/13/19 06:10 Basophils 0 % (0-3) 02/13/19 06:10 Platelet Estimate DECREASED PLATELETS (NORMAL) 02/13/19 06:10 Sodium 131 mEq/L (136-145) L 02/13/19 06:10 Potassium 3.7 mEq/L (3.5-5.1) 02/13/19 06:10 Chloride 100 mEq/L (98-107) 02/13/19 06:10 Carbon Dioxide 22.1 mEq/L (21.0-31.0) 02/13/19 06:10 Anion Gap 12.6 (7.0-16.0) 02/13/19 06:10 BUN 17 mg/dL (7-25) 02/13/19 06:10 Creatinine 0.7 mg/dL (0.6-1.2) 02/13/19 06:10 Est GFR ( Amer) > 60.0 ml/min (>90) 02/13/19 06:10 Est GFR (Non-Af Amer) > 60.0 ml/min 02/13/19 06:10 BUN/Creatinine Ratio 24.3 02/13/19 06:10 Glucose 98 mg/dL (70-105) 02/13/19 06:10 POC Glucose 175 MG/DL (70 - 105) H 02/17/19 06:29 Calcium 9.2 mg/dL (8.6-10.3) 02/13/19 06:10 Total Bilirubin 0.6 mg/dL (0.3-1.0) 02/13/19 06:10 AST 37 U/L (13-39) 02/13/19 06:10 ALT 34 U/L (7-52) 02/13/19 06:10 Alkaline Phosphatase 63 U/L (34-104) 02/13/19 06:10 Total Protein 6.6 gm/dL (6.0-8.3) 02/13/19 06:10 Albumin 3.6 gm/dL (3.7-5.3) L 02/13/19 06:10 Globulin 3.0 gm/dL 02/13/19 06:10 Albumin/Globulin Ratio 1.2 (1.0-1.8) 02/13/19 06:10 Triglycerides 149 mg/dL (<150) 02/07/19 00:00 Cholesterol 169 mg/dL (<200) 02/07/19 00:00 LDL Cholesterol Direct 95 mg/dL (75-193) 02/07/19 00:00 HDL Cholesterol 52 mg/dL (23-92) 02/07/19 00:00 Urine Source CLEAN C 02/06/19 20:30 Urine Color YELLOW 02/06/19 20:30 Urine Clarity CLEAR (CLEAR) 02/06/19 20:30 Urine pH 6.0 (4.6 - 8.0) 02/06/19 20:30 Ur Specific [place] 1.015 (1.005-1.030) 02/06/19 20:30 Urine Protein 100 mg/dL (NEGATIVE) H 02/06/19 20:30 Urine Glucose (UA) >=1000 mg/dL (NEGATIVE) H 02/06/19 20:30 Urine Ketones NEGATIVE mg/dL (NEGATIVE) 02/06/19 20:30 Urine Blood TRACE (NEGATIVE) 02/06/19 20:30 Urine Nitrate NEGATIVE (NEGATIVE) 02/06/19 20:30 Urine Bilirubin NEGATIVE (NEGATIVE) 02/06/19 20:30 Urine Urobilinogen 0.2 E.U./dL (0.2 - 1.0) 02/06/19 20:30 Ur Leukocyte Esterase NEGATIVE (NEGATIVE) 02/06/19 20:30 Urine RBC NONE SEEN /hpf (0-5) 02/06/19 20:30 Urine WBC 0-2 /hpf (0-5) 02/06/19 20:30 Ur Epithelial Cells NONE SEEN /lpf (FEW) 02/06/19 20:30 Urine Bacteria NONE SEEN /hpf (NONE SEEN) 02/06/19 20:30 Valproic Acid 30.6 ug/mL (50.0-100.0) L 02/07/19 05:30 - Physical Exam Vitals and I&O: Vital Signs Temp 98 F 02/17/19 06:21 Pulse 73 02/17/19 06:21 Resp 18 02/17/19 06:21 BP 119/69 02/17/19 06:21 Pulse Ox 98 02/17/19 06:21 Intake & Output 02/16/19 02/17/19 02/17/19 18:59 06:59 18:59 Intake Total 900 240 Balance 900 240 Intake: Oral 900 240 Other: # Voids 4 3 # Bowel Movements 1 0 Active Medications: Current Medications Acetaminophen (Tylenol) 650 mg PO Q4HR PRN PRN Reason: Mild Pain / Temp above 100 Stop: 04/08/19 00:18 Last Admin: 02/16/19 14:19 Dose: 650 mg Al Hydrox/Mg Hydrox/Simethicone (Maalox) 30 ml PO Q4HR PRN PRN Reason: GI DISTRESS Stop: 04/08/19 00:21 Aspirin (Aspirin Chewable) 81 mg PO DAILY [facility] Stop: 04/08/19 08:59 Last Admin: 02/17/19 08:38 Dose: 81 mg Dextrose (Glutose 40%) 18.75 gm PO PRN PRN PRN Reason: BS below 70 & tolerate po Stop: 04/08/19 00:21 Donepezil HCl (Aricept) 10 mg PO DAILY [facility] Stop: 04/08/19 08:59 Last Admin: 02/17/19 08:38 Dose: 10 mg Ergocalciferol (Vitamin D2) 50,000 iu PO QFRI [facility] Stop: 04/14/19 08:59 Last Admin: 02/13/19 16:19 Dose: 50,000 iu Glucagon (Glucagen) 1 mg IM PRN PRN PRN Reason: BS below 70 & Dextrose ineffec Stop: 04/08/19 00:21 Insulin Glargine (Lantus Insulin) 25 units SUBQ DAILY [facility] Stop: 04/08/19 08:59 Last Admin: 02/16/19 09:07 Dose: 25 units Insulin Human Lispro (Humalog Insulin Sliding Scale) 0 units SUBQ ACHS [facility]; Protocol Stop: 04/08/19 07:29 Last Admin: 02/17/19 06:40 Dose: 3 units Magnesium Hydroxide (Milk Of Magnesia) 30 ml PO HS PRN PRN Reason: Constipation Stop: 04/08/19 00:21 Memantine (Namenda) 10 mg PO BID [facility] Stop: 04/08/19 08:59 Last Admin: 02/17/19 08:38 Dose: 10 mg Multivitamins/Vitamin C (Theragran) 1 tab PO DAILY [facility] Stop: 04/08/19 08:59 Last Admin: 02/17/19 08:38 Dose: 1 tab Quetiapine Fumarate (Seroquel) 37.5 mg PO HS [facility]; Protocol Stop: 04/13/19 20:59 Last Admin: 02/16/19 21:01 Dose: 37.5 mg Sodium Chloride (Nacl Tab) 1 gm PO BID [facility] Stop: 04/12/19 16:59 Last Admin: 02/17/19 08:38 Dose: 1 gm Tramadol HCl (Ultram) 50 mg PO TID PRN PRN Reason: Pain (Severe) LEVEL 7-10 Stop: 04/08/19 00:21 Last Admin: 02/08/19 18:41 Dose: 50 mg Zolpidem Tartrate (Ambien) 5 mg PO HS PRN PRN Reason: Insomnia Stop: 04/08/19 00:18 Last Admin: 02/16/19 21:02 Dose: 5 mg General: Alert, No acute distress HEENT: Atraumatic Neck: Supple Cardiovascular: Regular rate Lungs: Clear to auscultation Abdomen: Bowel sounds Extremities: Other (No edema) Neurological: Normal gait Skin: Other (Warm and dry) Psych/Mental Status: Other (confused) Assessment/Plan - Assessment Assessment: Patient is awake, alert, calm not oriented. Na improving. Dx: Increased in agitation, DM, Hyponatremia - Plan Plan: Patient is follow by Psychiqtry, she is continue with home meds. Sodium Tabs are added to treatment. Will continue to monitor. Nutritional Asmnt/Malnutr-PDOC - Dietary Evaluation Malnutrition Findings (Please click <Entered> for more info): Nutritional Asmnt/Malnutrition Start: 02/07/19 09: 10 Text: Status: Complete Freq: Protocol: Document 02/07/19 09:10 JOSE (Rec: 02/07/19 09:58 JOSE RUBY- [email or web address]) Nutritional Asmnt/Malnutrition Patient General Information Nutritional Screening High Risk Diagnosis Psychosis Pertinent Medical Hx/Surgical Hx Psychosis, DM, HTN, Dementia Subjective Information Consult received for DM. Per nursing notes, patient is confused and forgetful. In bed at time of visit. Not able to answer questions regarding diet history. Current Diet Order/ Nutrition Support 60 gm CCHO, 2gm Sodium Patient / S.O Not Indicated Pertinent Medications maalox, Vitamin D2, Glucagon, lantus, humalog, MOM, Theragran Pertinent Labs (02/06) Na 129, glucose 256 Nutritional Hx/Data Height 1.55 m Height (Calculated Centimeters) 154.9 Current Weight (lbs) 69.4 kg Weight (Calculated Kilograms) 69.4 Weight (Calculated Grams) 81363.6 [place] Body Weight 105 % [place] Body Weight 145 Body Mass Index (BMI) 28.9 Recent Weight Change No Weight Status Overweight GI Symptoms GI Symptoms None Last BM none noted since admission Difficult in: None Food Allergies No Cultural/Ethnic/Synagogue Belief none indicated Usual diet at home unknown Skin Integrity/Comment: Robe 21, intact Current %PO Good (75-100%) Estimated Nutritional Goals BEE in Kcals: Using Current wt Calories/Kcals/Kg 69.5kg CBW 22-27 Kcals Calculated ~9660-1821 kcal/day Protein: Using Current wt Protein g/k.8-1 gm/kg Protein Calculated ~55-70 gm/day Fluid: ml ~4722-0741 ml/day (1 ml/kcal) Nutritional Problem 1. Problem Problem Altered nutrition related lab values related to Etiology electrolyte imbalance, hyperglycemia aeb Signs/Symptoms: Na 129, glucose 256 Intervention/Recommendation Comments 1. Continue with 60 gm CCHO, 2gm Sodium diet as tolerated. 2. MD to adjust insulin regimen as needed for optimal glycemic control. 3. Consider fluid restiction if patient remains hyponatremic. Expected Outcomes/Goals Expected Outcomes/Goals PO intake to meet >75% of nutritional needs, weight stability or trend toward ideal body weight, skin intact , nutrition related labs to approach WNL F/U MR 02/10-
[2019-02-17] MEDS: Insulin Glargine 100 units/ml 10ml Vial SUBQ SCH (09:50)
--- NOTE | 2019-02-18 02:28 | Progress Notes ---
DATE: 02/17/2019 SUBJECTIVE: Case was discussed with staff of the patient, reviewed records. The patient continues to be forgetful, confused when on the unit. Symptoms have multiple somatic complaints. Continues to have difficulty following redirection because of confusion, irritability, and continues to have poor insight. Unable to make safe plan for self-care. She has been compliant with the medication. No side effects, no sedation, no nausea, no extrapyramidal symptoms. I will continue the patient in group therapy, milieu therapy, and adjust her medication as needed. JOB# [id number]
[2019-02-18 06:26] LABS: HEMATOCRIT 37.1 % (41.0-60); HEMOGLOBIN 12.7 gm/dL (12-16); MEAN CELL VOLUME 93.7 fl (81-100); MEAN CORPUSCULAR HGB CONC 34.2 pg (28.0-36.0); MEAN PLATELET VOLUME 7.6 fl; PLATELET COUNT 124 Th/cmm (150-400); RED BLOOD COUNT 3.96 Mil/cmm (3.80-5.20); RED CELL DISTRIBUTION WIDTH 12.4 % (11.5-20.0); WHITE BLOOD COUNT 7.3 Th/cmm (4.8-10.8)
[2019-02-18] MEDS: INSULIN LISPRO SLIDING SCALE 100 UNITS/ML UNIT SUBQ SCH ×4 (06:35→20:41)
[2019-02-18 06:48] LABS: ALB/GLOB RATIO 1.2 (1.0-1.8); ALBUMIN 3.6 gm/dL (3.7-5.3); ALKALINE PHOSPHATASE 61 U/L (34-104); BILIRUBIN,TOTAL 0.5 mg/dL (0.3-1.0); BUN - UREA NITROGEN 22 mg/dL (7-25); CALCIUM SERUM 9.1 mg/dL (8.6-10.3); CARBON DIOXIDE 24.7 mEq/L (21.0-31.0); CHLORIDE 106 mEq/L (98-107); CHOLESTEROL 141 mg/dL (<200); CREATININE - SERUM 0.8 mg/dL (0.6-1.2); GFR AFRICAN-AMERICAN > 60.0 ml/min (>90); GFR NON AFRICAN-AMERICAN > 60.0 ml/min; GLUCOSE 128 mg/dL (70-105); HDL -HIGH DENSITY LIPOPROTEIN 49 mg/dL (23-92); POTASSIUM SERUM 3.7 mEq/L (3.5-5.1); SGOT 50 U/L (13-39); SGPT/ALT 47 U/L (7-52); SODIUM SERUM 139 mEq/L (136-145); TOTAL PROTEIN,SERUM 6.5 gm/dL (6.0-8.3); TRIGLYCERIDES 91 mg/dL (<150)
[2019-02-18 07:13] LABS: BAND NEUTROPHILE 0 % (0-10); BASOPHIL 0 % (0-3); EOSINOPHIL 4 % (0-5); LYMPHOCYTE 45 % (20-50); MONOCYTE 9 % (2-10); NEUTROPHILS 42 % (40-80)
--- NOTE | 2019-02-18 09:06 | General Progress Note ---
Subjective - Review of Systems Service Date: 02/18/19 Subjective: I am ok Objective - Results Result Diagrams: 02/18/19 06:00 02/18/19 06:00 Recent Labs: Laboratory Last Values WBC 7.3 Th/cmm (4.8-10.8) 02/18/19 06:00 RBC 3.96 Mil/cmm (3.80-5.20) 02/18/19 06:00 Hgb 12.7 gm/dL (12-16) 02/18/19 06:00 Hct 37.1 % (41.0-60) L 02/18/19 06:00 MCV 93.7 fl (81-100) 02/18/19 06:00 MCH 32.0 pg (27.0-31.0) H 02/18/19 06:00 MCHC Differential 34.2 pg (28.0-36.0) 02/18/19 06:00 RDW 12.4 % (11.5-20.0) 02/18/19 06:00 Plt Count 124 Th/cmm (150-400) L 02/18/19 06:00 MPV 7.6 fl 02/18/19 06:00 Add Manual Diff YES 02/18/19 06:00 Neutrophils % 56.9 % (40.0-80.0) 02/06/19 23:00 Band Neutrophils % 0 % (0-10) 02/18/19 06:00 Lymphocytes % 31.7 % (20.0-50.0) 02/06/19 23:00 Monocytes % 9.6 % (2.0-10.0) 02/06/19 23:00 Eosinophils % 1.4 % (0.0-5.0) 02/06/19 23:00 Basophils % 0.4 % (0.0-2.0) 02/06/19 23:00 Neutrophils (Manual) 42 % (40-80) 02/18/19 06:00 Lymphocytes 45 % (20-50) 02/18/19 06:00 Monocytes 9 % (2-10) 02/18/19 06:00 Eosinophils 4 % (0-5) 02/18/19 06:00 Basophils 0 % (0-3) 02/18/19 06:00 Platelet Estimate DECREASED PLATELETS (NORMAL) 02/13/19 06:10 Sodium 139 mEq/L (136-145) 02/18/19 06:00 Potassium 3.7 mEq/L (3.5-5.1) 02/18/19 06:00 Chloride 106 mEq/L (98-107) 02/18/19 06:00 Carbon Dioxide 24.7 mEq/L (21.0-31.0) 02/18/19 06:00 Anion Gap 12.0 (7.0-16.0) 02/18/19 06:00 BUN 22 mg/dL (7-25) 02/18/19 06:00 Creatinine 0.8 mg/dL (0.6-1.2) 02/18/19 06:00 Est GFR ( Amer) > 60.0 ml/min (>90) 02/18/19 06:00 Est GFR (Non-Af Amer) > 60.0 ml/min 02/18/19 06:00 BUN/Creatinine Ratio 27.5 02/18/19 06:00 Glucose 128 mg/dL (70-105) H 02/18/19 06:00 POC Glucose 125 MG/DL (70 - 105) H 02/18/19 06:04 Calcium 9.1 mg/dL (8.6-10.3) 02/18/19 06:00 Total Bilirubin 0.5 mg/dL (0.3-1.0) 02/18/19 06:00 AST 50 U/L (13-39) H 02/18/19 06:00 ALT 47 U/L (7-52) 02/18/19 06:00 Alkaline Phosphatase 61 U/L (34-104) 02/18/19 06:00 Total Protein 6.5 gm/dL (6.0-8.3) 02/18/19 06:00 Albumin 3.6 gm/dL (3.7-5.3) L 02/18/19 06:00 Globulin 2.9 gm/dL 02/18/19 06:00 Albumin/Globulin Ratio 1.2 (1.0-1.8) 02/18/19 06:00 Triglycerides 91 mg/dL (<150) 02/18/19 06:00 Cholesterol 141 mg/dL (<200) 02/18/19 06:00 LDL Cholesterol Direct 74 mg/dL (75-193) L 02/18/19 06:00 HDL Cholesterol 49 mg/dL (23-92) 02/18/19 06:00 TSH 0.67 uIU/ml (0.34-5.60) 02/18/19 06:00 Urine Source CLEAN C 02/06/19 20:30 Urine Color YELLOW 02/06/19 20:30 Urine Clarity CLEAR (CLEAR) 02/06/19 20:30 Urine pH 6.0 (4.6 - 8.0) 02/06/19 20:30 Ur Specific [place] 1.015 (1.005-1.030) 02/06/19 20:30 Urine Protein 100 mg/dL (NEGATIVE) H 02/06/19 20:30 Urine Glucose (UA) >=1000 mg/dL (NEGATIVE) H 02/06/19 20:30 Urine Ketones NEGATIVE mg/dL (NEGATIVE) 02/06/19 20:30 Urine Blood TRACE (NEGATIVE) 02/06/19 20:30 Urine Nitrate NEGATIVE (NEGATIVE) 02/06/19 20:30 Urine Bilirubin NEGATIVE (NEGATIVE) 02/06/19 20:30 Urine Urobilinogen 0.2 E.U./dL (0.2 - 1.0) 02/06/19 20:30 Ur Leukocyte Esterase NEGATIVE (NEGATIVE) 02/06/19 20:30 Urine RBC NONE SEEN /hpf (0-5) 02/06/19 20:30 Urine WBC 0-2 /hpf (0-5) 02/06/19 20:30 Ur Epithelial Cells NONE SEEN /lpf (FEW) 02/06/19 20:30 Urine Bacteria NONE SEEN /hpf (NONE SEEN) 02/06/19 20:30 Valproic Acid 30.6 ug/mL (50.0-100.0) L 02/07/19 05:30 - Physical Exam Vitals and I&O: Vital Signs Temp 97.5 F 02/18/19 05:55 Pulse 72 02/18/19 05:55 Resp 19 02/18/19 05:55 BP 119/52 02/18/19 05:55 Pulse Ox 95 02/18/19 05:55 Intake & Output 02/17/19 02/18/19 02/18/19 18:59 06:59 18:59 Intake Total 600 280 Balance 600 280 Intake: Oral 600 280 Other: # Voids 3 2 # Bowel Movements 0 Active Medications: Current Medications Acetaminophen (Tylenol) 650 mg PO Q4HR PRN PRN Reason: Mild Pain / Temp above 100 Stop: 04/08/19 00:18 Last Admin: 02/17/19 13:40 Dose: 650 mg Al Hydrox/Mg Hydrox/Simethicone (Maalox) 30 ml PO Q4HR PRN PRN Reason: GI DISTRESS Stop: 04/08/19 00:21 Aspirin (Aspirin Chewable) 81 mg PO DAILY [facility] Stop: 04/08/19 08:59 Last Admin: 02/17/19 08:38 Dose: 81 mg Dextrose (Glutose 40%) 18.75 gm PO PRN PRN PRN Reason: BS below 70 & tolerate po Stop: 04/08/19 00:21 Donepezil HCl (Aricept) 10 mg PO DAILY [facility] Stop: 04/08/19 08:59 Last Admin: 02/17/19 08:38 Dose: 10 mg Ergocalciferol (Vitamin D2) 50,000 iu PO QFRI [facility] Stop: 04/14/19 08:59 Last Admin: 02/13/19 16:19 Dose: 50,000 iu Glucagon (Glucagen) 1 mg IM PRN PRN PRN Reason: BS below 70 & Dextrose ineffec Stop: 04/08/19 00:21 Insulin Glargine (Lantus Insulin) 25 units SUBQ DAILY [facility] Stop: 04/08/19 08:59 Last Admin: 02/17/19 09:50 Dose: 25 units Insulin Human Lispro (Humalog Insulin Sliding Scale) 0 units SUBQ ACHS [facility]; Protocol Stop: 04/08/19 07:29 Last Admin: 02/18/19 06:35 Dose: Not Given Magnesium Hydroxide (Milk Of Magnesia) 30 ml PO HS PRN PRN Reason: Constipation Stop: 04/08/19 00:21 Memantine (Namenda) 10 mg PO BID [facility] Stop: 04/08/19 08:59 Last Admin: 02/17/19 17:00 Dose: 10 mg Multivitamins/Vitamin C (Theragran) 1 tab PO DAILY [facility] Stop: 04/08/19 08:59 Last Admin: 02/17/19 08:38 Dose: 1 tab Quetiapine Fumarate (Seroquel) 37.5 mg PO HS [facility]; Protocol Stop: 04/13/19 20:59 Last Admin: 02/17/19 20:33 Dose: 37.5 mg Sodium Chloride (Nacl Tab) 1 gm PO BID [facility] Stop: 04/12/19 16:59 Last Admin: 02/17/19 17:00 Dose: 1 gm Tramadol HCl (Ultram) 50 mg PO TID PRN PRN Reason: Pain (Severe) LEVEL 7-10 Stop: 04/08/19 00:21 Last Admin: 02/08/19 18:41 Dose: 50 mg Zolpidem Tartrate (Ambien) 5 mg PO HS PRN PRN Reason: Insomnia Stop: 04/08/19 00:18 Last Admin: 02/17/19 22:30 Dose: 5 mg General: Alert, No acute distress HEENT: Atraumatic Neck: Supple Cardiovascular: Regular rate Lungs: Clear to auscultation Abdomen: Bowel sounds Extremities: Other (No edema) Neurological: Normal gait Skin: Other (Warm and dry) Psych/Mental Status: Other (confused) Assessment/Plan - Assessment Assessment: Patient is awake, alert, calm not oriented. Na improving. Dx: Increased in agitation, DM, Hyponatremia - Plan Plan: Patient is follow by Psychiq[facility], she is continue with home meds. Sodium Tabs are added to treatment. Will continue to monitor. Nutritional Asmnt/Malnutr-PDOC - Dietary Evaluation Malnutrition Findings (Please click <Entered> for more info): Nutritional Asmnt/Malnutrition Start: 02/07/19 09: 10 Text: Status: Complete Freq: Protocol: Document 02/07/19 09:10 JOSE (Rec: 02/07/19 09:58 JOSE BELTRAN- [email or web address]) Nutritional Asmnt/Malnutrition Patient General Information Nutritional Screening High Risk Diagnosis Psychosis Pertinent Medical Hx/Surgical Hx Psychosis, DM, HTN, Dementia Subjective Information Consult received for DM. Per nursing notes, patient is confused and forgetful. In bed at time of visit. Not able to answer questions regarding diet history. Current Diet Order/ Nutrition Support 60 gm CCHO, 2gm Sodium Patient / S.O Not Indicated Pertinent Medications maalox, Vitamin D2, Glucagon, lantus, humalog, MOM, Theragran Pertinent Labs (02/06) Na 129, glucose 256 Nutritional Hx/Data Height 1.55 m Height (Calculated Centimeters) 154.9 Current Weight (lbs) 69.4 kg Weight (Calculated Kilograms) 69.4 Weight (Calculated Grams) 70354.6 [place] Body Weight 105 % [place] Body Weight 145 Body Mass Index (BMI) 28.9 Recent Weight Change No Weight Status Overweight GI Symptoms GI Symptoms None Last BM none noted since admission Difficult in: None Food Allergies No Cultural/Ethnic/Confucianist Belief none indicated Usual diet at home unknown Skin Integrity/Comment: Robe 21, intact Current %PO Good (75-100%) Estimated Nutritional Goals BEE in Kcals: Using Current wt Calories/Kcals/Kg 69.5kg CBW 22-27 Kcals Calculated ~9732-0613 kcal/day Protein: Using Current wt Protein g/k.8-1 gm/kg Protein Calculated ~55-70 gm/day Fluid: ml ~8960-9655 ml/day (1 ml/kcal) Nutritional Problem 1. Problem Problem Altered nutrition related lab values related to Etiology electrolyte imbalance, hyperglycemia aeb Signs/Symptoms: Na 129, glucose 256 Intervention/Recommendation Comments 1. Continue with 60 gm CCHO, 2gm Sodium diet as tolerated. 2. MD to adjust insulin regimen as needed for optimal glycemic control. 3. Consider fluid restiction if patient remains hyponatremic. Expected Outcomes/Goals Expected Outcomes/Goals PO intake to meet >75% of nutritional needs, weight stability or trend toward ideal body weight, skin intact , nutrition related labs to approach WNL F/U MR 02/10-
[2019-02-18] MEDS: Aspirin 81mg Chewable Tab PO SCH (09:19)
[2019-02-18] MEDS: Multivitamin Tab PO SCH (09:19)
[2019-02-18] MEDS: Insulin Glargine 100 units/ml 10ml Vial SUBQ SCH (09:22)
--- NOTE | 2019-02-19 00:16 | Progress Notes ---
DATE: 02/18/2019 FOLLOWUP PROGRESS NOTE PROGRESS ON THE UNIT: Case discussed with staff of the patient, reviewed records. The patient continues to have poor insight, unable to make a safe plan for self-care. She is demented, confused, internally preoccupied. No side effects to the medication, no sedation, no nausea, no extrapyramidal symptoms. We will continue to work with the patient in group therapy and milieu therapy, adjust the medication as needed. JOB# [id number]
[2019-02-19] MEDS: INSULIN LISPRO SLIDING SCALE 100 UNITS/ML UNIT SUBQ SCH ×4 (06:34→21:10)
--- NOTE | 2019-02-19 08:50 | General Progress Note ---
Subjective - Review of Systems Service Date: 02/19/19 Subjective: I am ok Objective - Results Result Diagrams: 02/18/19 06:00 02/18/19 06:00 Recent Labs: Laboratory Last Values WBC 7.3 Th/cmm (4.8-10.8) 02/18/19 06:00 RBC 3.96 Mil/cmm (3.80-5.20) 02/18/19 06:00 Hgb 12.7 gm/dL (12-16) 02/18/19 06:00 Hct 37.1 % (41.0-60) L 02/18/19 06:00 MCV 93.7 fl (81-100) 02/18/19 06:00 MCH 32.0 pg (27.0-31.0) H 02/18/19 06:00 MCHC Differential 34.2 pg (28.0-36.0) 02/18/19 06:00 RDW 12.4 % (11.5-20.0) 02/18/19 06:00 Plt Count 124 Th/cmm (150-400) L 02/18/19 06:00 MPV 7.6 fl 02/18/19 06:00 Add Manual Diff YES 02/18/19 06:00 Neutrophils % 56.9 % (40.0-80.0) 02/06/19 23:00 Band Neutrophils % 0 % (0-10) 02/18/19 06:00 Lymphocytes % 31.7 % (20.0-50.0) 02/06/19 23:00 Monocytes % 9.6 % (2.0-10.0) 02/06/19 23:00 Eosinophils % 1.4 % (0.0-5.0) 02/06/19 23:00 Basophils % 0.4 % (0.0-2.0) 02/06/19 23:00 Neutrophils (Manual) 42 % (40-80) 02/18/19 06:00 Lymphocytes 45 % (20-50) 02/18/19 06:00 Monocytes 9 % (2-10) 02/18/19 06:00 Eosinophils 4 % (0-5) 02/18/19 06:00 Basophils 0 % (0-3) 02/18/19 06:00 Platelet Estimate DECREASED PLATELETS (NORMAL) 02/13/19 06:10 Sodium 139 mEq/L (136-145) 02/18/19 06:00 Potassium 3.7 mEq/L (3.5-5.1) 02/18/19 06:00 Chloride 106 mEq/L (98-107) 02/18/19 06:00 Carbon Dioxide 24.7 mEq/L (21.0-31.0) 02/18/19 06:00 Anion Gap 12.0 (7.0-16.0) 02/18/19 06:00 BUN 22 mg/dL (7-25) 02/18/19 06:00 Creatinine 0.8 mg/dL (0.6-1.2) 02/18/19 06:00 Est GFR ( Amer) > 60.0 ml/min (>90) 02/18/19 06:00 Est GFR (Non-Af Amer) > 60.0 ml/min 02/18/19 06:00 BUN/Creatinine Ratio 27.5 02/18/19 06:00 Glucose 128 mg/dL (70-105) H 02/18/19 06:00 POC Glucose 94 MG/DL (70 - 105) 02/19/19 06:11 Calcium 9.1 mg/dL (8.6-10.3) 02/18/19 06:00 Total Bilirubin 0.5 mg/dL (0.3-1.0) 02/18/19 06:00 AST 50 U/L (13-39) H 02/18/19 06:00 ALT 47 U/L (7-52) 02/18/19 06:00 Alkaline Phosphatase 61 U/L (34-104) 02/18/19 06:00 Total Protein 6.5 gm/dL (6.0-8.3) 02/18/19 06:00 Albumin 3.6 gm/dL (3.7-5.3) L 02/18/19 06:00 Globulin 2.9 gm/dL 02/18/19 06:00 Albumin/Globulin Ratio 1.2 (1.0-1.8) 02/18/19 06:00 Triglycerides 91 mg/dL (<150) 02/18/19 06:00 Cholesterol 141 mg/dL (<200) 02/18/19 06:00 LDL Cholesterol Direct 74 mg/dL (75-193) L 02/18/19 06:00 HDL Cholesterol 49 mg/dL (23-92) 02/18/19 06:00 TSH 0.67 uIU/ml (0.34-5.60) 02/18/19 06:00 Urine Source CLEAN C 02/06/19 20:30 Urine Color YELLOW 02/06/19 20:30 Urine Clarity CLEAR (CLEAR) 02/06/19 20:30 Urine pH 6.0 (4.6 - 8.0) 02/06/19 20:30 Ur Specific [place] 1.015 (1.005-1.030) 02/06/19 20:30 Urine Protein 100 mg/dL (NEGATIVE) H 02/06/19 20:30 Urine Glucose (UA) >=1000 mg/dL (NEGATIVE) H 02/06/19 20:30 Urine Ketones NEGATIVE mg/dL (NEGATIVE) 02/06/19 20:30 Urine Blood TRACE (NEGATIVE) 02/06/19 20:30 Urine Nitrate NEGATIVE (NEGATIVE) 02/06/19 20:30 Urine Bilirubin NEGATIVE (NEGATIVE) 02/06/19 20:30 Urine Urobilinogen 0.2 E.U./dL (0.2 - 1.0) 02/06/19 20:30 Ur Leukocyte Esterase NEGATIVE (NEGATIVE) 02/06/19 20:30 Urine RBC NONE SEEN /hpf (0-5) 02/06/19 20:30 Urine WBC 0-2 /hpf (0-5) 02/06/19 20:30 Ur Epithelial Cells NONE SEEN /lpf (FEW) 02/06/19 20:30 Urine Bacteria NONE SEEN /hpf (NONE SEEN) 02/06/19 20:30 Valproic Acid 30.6 ug/mL (50.0-100.0) L 02/07/19 05:30 - Physical Exam Vitals and I&O: Vital Signs Temp 96.9 F 02/19/19 06:00 Pulse 69 02/19/19 06:00 Resp 19 02/19/19 06:00 BP 113/68 02/19/19 06:00 Pulse Ox 96 02/19/19 06:00 Intake & Output 02/18/19 02/19/19 02/19/19 18:59 06:59 18:59 Intake Total 1500 Balance 1500 Intake: Oral 1500 Other: # Voids 3 # Bowel Movements 0 Active Medications: Current Medications Acetaminophen (Tylenol) 650 mg PO Q4HR PRN PRN Reason: Mild Pain / Temp above 100 Stop: 04/08/19 00:18 Last Admin: 02/18/19 13:25 Dose: 650 mg Al Hydrox/Mg Hydrox/Simethicone (Maalox) 30 ml PO Q4HR PRN PRN Reason: GI DISTRESS Stop: 04/08/19 00:21 Aspirin (Aspirin Chewable) 81 mg PO DAILY [facility] Stop: 04/08/19 08:59 Last Admin: 02/18/19 09:19 Dose: 81 mg Dextrose (Glutose 40%) 18.75 gm PO PRN PRN PRN Reason: BS below 70 & tolerate po Stop: 04/08/19 00:21 Donepezil HCl (Aricept) 10 mg PO DAILY [facility] Stop: 04/08/19 08:59 Last Admin: 02/18/19 09:19 Dose: 10 mg Ergocalciferol (Vitamin D2) 50,000 iu PO QFRI [facility] Stop: 04/14/19 08:59 Last Admin: 02/13/19 16:19 Dose: 50,000 iu Glucagon (Glucagen) 1 mg IM PRN PRN PRN Reason: BS below 70 & Dextrose ineffec Stop: 04/08/19 00:21 Insulin Glargine (Lantus Insulin) 25 units SUBQ DAILY [facility] Stop: 04/08/19 08:59 Last Admin: 02/18/19 09:22 Dose: 25 units Insulin Human Lispro (Humalog Insulin Sliding Scale) 0 units SUBQ ACHS [facility]; Protocol Stop: 04/08/19 07:29 Last Admin: 02/19/19 06:34 Dose: Not Given Magnesium Hydroxide (Milk Of Magnesia) 30 ml PO HS PRN PRN Reason: Constipation Stop: 04/08/19 00:21 Memantine (Namenda) 10 mg PO BID [facility] Stop: 04/08/19 08:59 Last Admin: 02/18/19 17:18 Dose: 10 mg Multivitamins/Vitamin C (Theragran) 1 tab PO DAILY [facility] Stop: 04/08/19 08:59 Last Admin: 02/18/19 09:19 Dose: 1 tab Quetiapine Fumarate (Seroquel) 37.5 mg PO HS [facility]; Protocol Stop: 04/13/19 20:59 Last Admin: 02/18/19 20:41 Dose: 37.5 mg Tramadol HCl (Ultram) 50 mg PO TID PRN PRN Reason: Pain (Severe) LEVEL 7-10 Stop: 04/08/19 00:21 Last Admin: 02/08/19 18:41 Dose: 50 mg Zolpidem Tartrate (Ambien) 5 mg PO HS PRN PRN Reason: Insomnia Stop: 04/08/19 00:18 Last Admin: 02/18/19 23:46 Dose: 5 mg General: Alert, No acute distress HEENT: Atraumatic Neck: Supple Cardiovascular: Regular rate Lungs: Clear to auscultation Abdomen: Bowel sounds Extremities: Other (No edema) Neurological: Normal gait Skin: Other (Warm and dry) Psych/Mental Status: Other (confused) Assessment/Plan - Assessment Assessment: Patient is awake, alert, calm not oriented. Na improving. Dx: Increased in agitation, DM, Hyponatremia. - Plan Plan: Patient is follow by [facility], she is continue with home meds. Sodium Tabs are added to treatment. Will continue to monitor. Nutritional Asmnt/Malnutr-PDOC - Dietary Evaluation Malnutrition Findings (Please click <Entered> for more info): Nutritional Asmnt/Malnutrition Start: 02/07/19 09: 10 Text: Status: Complete Freq: Protocol: Document 02/07/19 09:10 JOSE (Rec: 02/07/19 09:58 JOSE BELTRAN- [email or web address]) Nutritional Asmnt/Malnutrition Patient General Information Nutritional Screening High Risk Diagnosis Psychosis Pertinent Medical Hx/Surgical Hx Psychosis, DM, HTN, Dementia Subjective Information Consult received for DM. Per nursing notes, patient is confused and forgetful. In bed at time of visit. Not able to answer questions regarding diet history. Current Diet Order/ Nutrition Support 60 gm CCHO, 2gm Sodium Patient / S.O Not Indicated Pertinent Medications maalox, Vitamin D2, Glucagon, lantus, humalog, MOM, Theragran Pertinent Labs (02/06) Na 129, glucose 256 Nutritional Hx/Data Height 1.55 m Height (Calculated Centimeters) 154.9 Current Weight (lbs) 69.4 kg Weight (Calculated Kilograms) 69.4 Weight (Calculated Grams) 52226.6 [place] Body Weight 105 % [place] Body Weight 145 Body Mass Index (BMI) 28.9 Recent Weight Change No Weight Status Overweight GI Symptoms GI Symptoms None Last BM none noted since admission Difficult in: None Food Allergies No Cultural/Ethnic/Moravian Belief none indicated Usual diet at home unknown Skin Integrity/Comment: Robe 21, intact Current %PO Good (75-100%) Estimated Nutritional Goals BEE in Kcals: Using Current wt Calories/Kcals/Kg 69.5kg CBW 22-27 Kcals Calculated ~2309-1477 kcal/day Protein: Using Current wt Protein g/k.8-1 gm/kg Protein Calculated ~55-70 gm/day Fluid: ml ~9922-7149 ml/day (1 ml/kcal) Nutritional Problem 1. Problem Problem Altered nutrition related lab values related to Etiology electrolyte imbalance, hyperglycemia aeb Signs/Symptoms: Na 129, glucose 256 Intervention/Recommendation Comments 1. Continue with 60 gm CCHO, 2gm Sodium diet as tolerated. 2. MD to adjust insulin regimen as needed for optimal glycemic control. 3. Consider fluid restiction if patient remains hyponatremic. Expected Outcomes/Goals Expected Outcomes/Goals PO intake to meet >75% of nutritional needs, weight stability or trend toward ideal body weight, skin intact , nutrition related labs to approach WNL F/U MR 02/10-
[2019-02-19] MEDS: Multivitamin Tab PO SCH (08:54)
[2019-02-19] MEDS: Aspirin 81mg Chewable Tab PO SCH (08:54)
[2019-02-19] MEDS: Insulin Glargine 100 units/ml 10ml Vial SUBQ SCH (08:56)
--- NOTE | 2019-02-20 02:03 | Progress Notes ---
DATE: 02/19/2019 FOLLOWUP PROGRESS NOTE Case was discussed with staff of the patient, reviewed records. The patient continues to doing more or less the same, continues to have episodes of agitation, irritability and needing redirection. She is sleeping well, eating well. No side effects with the medication, no sedation, no nausea and we will continue to work with the patient in group therapy, milieu therapy, and adjust the medications as needed. JOB# [id number]
[2019-02-20] MEDS: INSULIN LISPRO SLIDING SCALE 100 UNITS/ML UNIT SUBQ SCH ×3 (06:51→16:02)
--- NOTE | 2019-02-20 08:52 | General Progress Note ---
Subjective - Review of Systems Service Date: 02/20/19 Subjective: I am fine Objective - Results Result Diagrams: 02/18/19 06:00 02/18/19 06:00 Recent Labs: Laboratory Last Values WBC 7.3 Th/cmm (4.8-10.8) 02/18/19 06:00 RBC 3.96 Mil/cmm (3.80-5.20) 02/18/19 06:00 Hgb 12.7 gm/dL (12-16) 02/18/19 06:00 Hct 37.1 % (41.0-60) L 02/18/19 06:00 MCV 93.7 fl (81-100) 02/18/19 06:00 MCH 32.0 pg (27.0-31.0) H 02/18/19 06:00 MCHC Differential 34.2 pg (28.0-36.0) 02/18/19 06:00 RDW 12.4 % (11.5-20.0) 02/18/19 06:00 Plt Count 124 Th/cmm (150-400) L 02/18/19 06:00 MPV 7.6 fl 02/18/19 06:00 Add Manual Diff YES 02/18/19 06:00 Neutrophils % 56.9 % (40.0-80.0) 02/06/19 23:00 Band Neutrophils % 0 % (0-10) 02/18/19 06:00 Lymphocytes % 31.7 % (20.0-50.0) 02/06/19 23:00 Monocytes % 9.6 % (2.0-10.0) 02/06/19 23:00 Eosinophils % 1.4 % (0.0-5.0) 02/06/19 23:00 Basophils % 0.4 % (0.0-2.0) 02/06/19 23:00 Neutrophils (Manual) 42 % (40-80) 02/18/19 06:00 Lymphocytes 45 % (20-50) 02/18/19 06:00 Monocytes 9 % (2-10) 02/18/19 06:00 Eosinophils 4 % (0-5) 02/18/19 06:00 Basophils 0 % (0-3) 02/18/19 06:00 Platelet Estimate DECREASED PLATELETS (NORMAL) 02/13/19 06:10 Sodium 139 mEq/L (136-145) 02/18/19 06:00 Potassium 3.7 mEq/L (3.5-5.1) 02/18/19 06:00 Chloride 106 mEq/L (98-107) 02/18/19 06:00 Carbon Dioxide 24.7 mEq/L (21.0-31.0) 02/18/19 06:00 Anion Gap 12.0 (7.0-16.0) 02/18/19 06:00 BUN 22 mg/dL (7-25) 02/18/19 06:00 Creatinine 0.8 mg/dL (0.6-1.2) 02/18/19 06:00 Est GFR ( Amer) > 60.0 ml/min (>90) 02/18/19 06:00 Est GFR (Non-Af Amer) > 60.0 ml/min 02/18/19 06:00 BUN/Creatinine Ratio 27.5 02/18/19 06:00 Glucose 128 mg/dL (70-105) H 02/18/19 06:00 POC Glucose 96 MG/DL (70 - 105) 02/20/19 06:09 Calcium 9.1 mg/dL (8.6-10.3) 02/18/19 06:00 Total Bilirubin 0.5 mg/dL (0.3-1.0) 02/18/19 06:00 AST 50 U/L (13-39) H 02/18/19 06:00 ALT 47 U/L (7-52) 02/18/19 06:00 Alkaline Phosphatase 61 U/L (34-104) 02/18/19 06:00 Total Protein 6.5 gm/dL (6.0-8.3) 02/18/19 06:00 Albumin 3.6 gm/dL (3.7-5.3) L 02/18/19 06:00 Globulin 2.9 gm/dL 02/18/19 06:00 Albumin/Globulin Ratio 1.2 (1.0-1.8) 02/18/19 06:00 Triglycerides 91 mg/dL (<150) 02/18/19 06:00 Cholesterol 141 mg/dL (<200) 02/18/19 06:00 LDL Cholesterol Direct 74 mg/dL (75-193) L 02/18/19 06:00 HDL Cholesterol 49 mg/dL (23-92) 02/18/19 06:00 TSH 0.67 uIU/ml (0.34-5.60) 02/18/19 06:00 Urine Source CLEAN C 02/06/19 20:30 Urine Color YELLOW 02/06/19 20:30 Urine Clarity CLEAR (CLEAR) 02/06/19 20:30 Urine pH 6.0 (4.6 - 8.0) 02/06/19 20:30 Ur Specific [place] 1.015 (1.005-1.030) 02/06/19 20:30 Urine Protein 100 mg/dL (NEGATIVE) H 02/06/19 20:30 Urine Glucose (UA) >=1000 mg/dL (NEGATIVE) H 02/06/19 20:30 Urine Ketones NEGATIVE mg/dL (NEGATIVE) 02/06/19 20:30 Urine Blood TRACE (NEGATIVE) 02/06/19 20:30 Urine Nitrate NEGATIVE (NEGATIVE) 02/06/19 20:30 Urine Bilirubin NEGATIVE (NEGATIVE) 02/06/19 20:30 Urine Urobilinogen 0.2 E.U./dL (0.2 - 1.0) 02/06/19 20:30 Ur Leukocyte Esterase NEGATIVE (NEGATIVE) 02/06/19 20:30 Urine RBC NONE SEEN /hpf (0-5) 02/06/19 20:30 Urine WBC 0-2 /hpf (0-5) 02/06/19 20:30 Ur Epithelial Cells NONE SEEN /lpf (FEW) 02/06/19 20:30 Urine Bacteria NONE SEEN /hpf (NONE SEEN) 02/06/19 20:30 Valproic Acid 30.6 ug/mL (50.0-100.0) L 02/07/19 05:30 - Physical Exam Vitals and I&O: Vital Signs Temp 97.0 F 02/20/19 06:27 Pulse 75 02/20/19 06:27 Resp 19 02/20/19 06:27 BP 86/52 02/20/19 06:27 Pulse Ox 97 02/20/19 06:27 Intake & Output 02/19/19 02/20/19 02/20/19 18:59 06:59 18:59 Intake Total 1200 350 Output Total 1 Balance 1200 349 Intake: Oral 1200 350 Output: Urine/Stool Mix 1 Other: # Voids 3 # Bowel Movements 1 0 Active Medications: Current Medications Acetaminophen (Tylenol) 650 mg PO Q4HR PRN PRN Reason: Mild Pain / Temp above 100 Stop: 04/08/19 00:18 Last Admin: 02/19/19 15:58 Dose: 650 mg Al Hydrox/Mg Hydrox/Simethicone (Maalox) 30 ml PO Q4HR PRN PRN Reason: GI DISTRESS Stop: 04/08/19 00:21 Aspirin (Aspirin Chewable) 81 mg PO DAILY [facility] Stop: 04/08/19 08:59 Last Admin: 02/19/19 08:54 Dose: 81 mg Dextrose (Glutose 40%) 18.75 gm PO PRN PRN PRN Reason: BS below 70 & tolerate po Stop: 04/08/19 00:21 Donepezil HCl (Aricept) 10 mg PO DAILY [facility] Stop: 04/08/19 08:59 Last Admin: 02/19/19 08:54 Dose: 10 mg Ergocalciferol (Vitamin D2) 50,000 iu PO QFRI [facility] Stop: 04/14/19 08:59 Last Admin: 02/13/19 16:19 Dose: 50,000 iu Glucagon (Glucagen) 1 mg IM PRN PRN PRN Reason: BS below 70 & Dextrose ineffec Stop: 04/08/19 00:21 Insulin Glargine (Lantus Insulin) 25 units SUBQ DAILY [facility] Stop: 04/08/19 08:59 Last Admin: 02/19/19 08:56 Dose: 25 units Insulin Human Lispro (Humalog Insulin Sliding Scale) 0 units SUBQ ACHS [facility]; Protocol Stop: 04/08/19 07:29 Last Admin: 02/20/19 06:51 Dose: Not Given Magnesium Hydroxide (Milk Of Magnesia) 30 ml PO HS PRN PRN Reason: Constipation Stop: 04/08/19 00:21 Memantine (Namenda) 10 mg PO BID [facility] Stop: 04/08/19 08:59 Last Admin: 02/19/19 16:55 Dose: 10 mg Multivitamins/Vitamin C (Theragran) 1 tab PO DAILY [facility] Stop: 04/08/19 08:59 Last Admin: 02/19/19 08:54 Dose: 1 tab Quetiapine Fumarate (Seroquel) 37.5 mg PO HS [facility]; Protocol Stop: 04/13/19 20:59 Last Admin: 02/19/19 21:10 Dose: 37.5 mg Tramadol HCl (Ultram) 50 mg PO TID PRN PRN Reason: Pain (Severe) LEVEL 7-10 Stop: 04/08/19 00:21 Last Admin: 02/08/19 18:41 Dose: 50 mg Zolpidem Tartrate (Ambien) 5 mg PO HS PRN PRN Reason: Insomnia Stop: 04/08/19 00:18 Last Admin: 02/19/19 21:10 Dose: 5 mg General: Alert, No acute distress HEENT: Atraumatic Neck: Supple Cardiovascular: Regular rate Lungs: Clear to auscultation Abdomen: Bowel sounds Extremities: Other (No edema) Neurological: Normal gait Skin: Other (Warm and dry) Psych/Mental Status: Other (confused) Assessment/Plan - Assessment Assessment: Patient is awake, alert, calm not oriented. Na improving. Dx: Increased in agitation, DM, Hyponatremia. - Plan Plan: Patient is follow by [facility], she is continue with home meds. Sodium Tabs are added to treatment. Awaiting placement. Will continue to monitor. Nutritional Asmnt/Malnutr-PDOC - Dietary Evaluation Malnutrition Findings (Please click <Entered> for more info): Nutritional Asmnt/Malnutrition Start: 02/07/19 09: 10 Text: Status: Complete Freq: Protocol: Document 02/07/19 09:10 JOSE (Rec: 02/07/19 09:58 [email or web address]- [email or web address]) Nutritional Asmnt/Malnutrition Patient General Information Nutritional Screening High Risk Diagnosis Psychosis Pertinent Medical Hx/Surgical Hx Psychosis, DM, HTN, Dementia Subjective Information Consult received for DM. Per nursing notes, patient is confused and forgetful. In bed at time of visit. Not able to answer questions regarding diet history. Current Diet Order/ Nutrition Support 60 gm CCHO, 2gm Sodium Patient / S.O Not Indicated Pertinent Medications maalox, Vitamin D2, Glucagon, lantus, humalog, MOM, Theragran Pertinent Labs (02/06) Na 129, glucose 256 Nutritional Hx/Data Height 1.55 m Height (Calculated Centimeters) 154.9 Current Weight (lbs) 69.4 kg Weight (Calculated Kilograms) 69.4 Weight (Calculated Grams) 87527.6 [place] Body Weight 105 % [place] Body Weight 145 Body Mass Index (BMI) 28.9 Recent Weight Change No Weight Status Overweight GI Symptoms GI Symptoms None Last BM none noted since admission Difficult in: None Food Allergies No Cultural/Ethnic/Hoahaoism Belief none indicated Usual diet at home unknown Skin Integrity/Comment: Robe 21, intact Current %PO Good (75-100%) Estimated Nutritional Goals BEE in Kcals: Using Current wt Calories/Kcals/Kg 69.5kg CBW 22-27 Kcals Calculated ~2889-0945 kcal/day Protein: Using Current wt Protein g/k.8-1 gm/kg Protein Calculated ~55-70 gm/day Fluid: ml ~2456-0353 ml/day (1 ml/kcal) Nutritional Problem 1. Problem Problem Altered nutrition related lab values related to Etiology electrolyte imbalance, hyperglycemia aeb Signs/Symptoms: Na 129, glucose 256 Intervention/Recommendation Comments 1. Continue with 60 gm CCHO, 2gm Sodium diet as tolerated. 2. MD to adjust insulin regimen as needed for optimal glycemic control. 3. Consider fluid restiction if patient remains hyponatremic. Expected Outcomes/Goals Expected Outcomes/Goals PO intake to meet >75% of nutritional needs, weight stability or trend toward ideal body weight, skin intact , nutrition related labs to approach WNL F/U MR
[2019-02-20] MEDS: Multivitamin Tab PO SCH (08:53)
[2019-02-20] MEDS: Aspirin 81mg Chewable Tab PO SCH (08:53)
[2019-02-20] MEDS: Insulin Glargine 100 units/ml 10ml Vial SUBQ SCH (08:54)
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
== END 2019-02-20 16:20 | DRG 885 ==
LOC: ER 20:14 → GERO 23:35
PROVIDERS: ADMIT Psychiatry & Neurology Psychiatry; ATTEND Psychiatry & Neurology Psychiatry
DX: F29 Unspecified psychosis not due to a substance or known physiological condition (principal); F03.91 Unspecified dementia, unspecified severity, with behavioral disturbance; R45.851 Suicidal ideations; E87.1 Hypo-osmolality and hyponatremia; F39 Unspecified mood [affective] disorder; E11.9 Type 2 diabetes mellitus without complications
CPT/HCPCS: 36415-UA; 80053-TC; 80061-TC; 80164-TC; 81001-TC; 82948-90; 83036-90; 84443-TC; 85007-TC; 85025-TC; G0410; J1815; Z7610